=== PATIENT | male | born 1955 | race Hispanic/Latino ===

== ENCOUNTER 2018-02-04 01:05 | Emergency (ER) | payer MEDICAID ==
[2018-02-04] MEDS ORDERED: NACL 0.9% 1000 ML 1,000 ML IV ONE (01:38)
[2018-02-04] MEDS ORDERED: KEPPRA 1,000 MG/NS 0.75% 100ML 1,000 MG/100 ML BAG IV ONE (01:38)
[2018-02-04 02:07] LABS: Hematocrit 43.7 % (35.5-45.6); Hemoglobin 14.5 gm/dl (11.8-15.2); Mean Corpuscular HGB Conc 33 % (32-34); Mean Corpuscular Hemoglobin 31 pg (28-32); Mean Corpuscular Volume 93 fl (84-94); Platelet Count 130 K/mm3 (140-440); Red Cell Distribution Width 14.2 % (13.2-15.2)
--- NOTE | 2018-02-04 02:09 | Cat Scan Report ---
FINAL REPORT EXAM: CT HEAD/BRAIN WO CON HISTORY: seizure TECHNIQUE: Routine axial imaging was obtained of the brain without IV contrast. FINDINGS: There is mild generalized atrophy. There is no evidence of acute stroke or hemorrhage. The ventricular system is appropriate in size and is symmetric. The basal cisterns appear normal. The visualized sinuses are clear. The mastoid air cells are well pneumatized. The orbital structures reveal nonspecific calcifications in both globes. Calvarium appears intact IMPRESSION: Mild generalized atrophy. No acute intracranial process.
[2018-02-04 02:24] LABS: BUN/Creatinine Ratio 11; Blood Urea Nitrogen 11 mg/dL (9-20); Hemolysis Index 1
[2018-02-04 02:29] LABS: Calcium > 13.0 mg/dL (8.4-10.2)
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
[2018-02-04 05:06] VITALS: BP 141/98
== END 2018-02-04 04:10 | disposition home or self-care (01) ==
LOC: ED 01:05
DX: G40.909 Epilepsy, unspecified, not intractable, without status epilepticus (principal); E86.0 Dehydration; F17.200 Nicotine dependence, unspecified, uncomplicated; E87.5 Hyperkalemia
CPT/HCPCS: 36415; 70450; 80048; 82550; 85027; 96365; 99284; J1953; J7030

== ENCOUNTER 2019-01-31 11:03 | Inpatient (IN) | payer MEDICARE, MEDICAID ==
[2019-01-31] MEDS ORDERED: NACL 0.9% 500 ML 500 ML IV ONE (12:22)
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
[2019-01-31 13:17] LABS: Basophils # (Auto) 0.1 K/mm3 (0.0-0.1); Basophils % (Auto) 0.7 % (0.0-1.8); Eosinophils # (Auto) 0.1 K/mm3 (0.0-0.4); Eosinophils % (Auto) 0.4 % (0.0-4.3); Hematocrit 41.1 % (35.5-45.6); Lymphocytes # (Auto) 2.2 K/mm3 (1.2-5.4); Lymphocytes % (Auto) 11.5 % (13.4-35.0); Mean Corpuscular HGB Conc 34 % (32-34); Mean Corpuscular Volume 95 fl (84-94); Monocytes # (Auto) 1.3 K/mm3 (0.0-0.8); Monocytes % (Auto) 6.9 % (0.0-7.3); Platelet Count 211 K/mm3 (140-440); Red Blood Count 4.33 M/mm3 (3.65-5.03); Red Cell Distribution Width 13.7 % (13.2-15.2)
--- NOTE | 2019-01-31 13:29 | XRay Report ---
CHEST 1 VIEW 1259 INDICATION / CLINICAL INFORMATION: Altered Mental Status. COMPARISON: None available. FINDINGS: SUPPORT DEVICES: None HEART / MEDIASTINUM: No significant abnormality. LUNGS / PLEURA: Areas of linear atelectasis and/or scarring are seen in the left mid to lower lung fi eld and minimally in the right base. Though no definite areas of consolidation are seen it would be d ifficult to exclude developing pneumonitis in the left base particularly. No obvious pleural effusion is seen. No pneumothorax. ADDITIONAL FINDINGS: No significant additional findings. IMPRESSION: Asymmetric density in the left base as discussed above. Clinical correlation and follow-u p are suggested. Signer Name: Uriel Carpenter MD Signed: 01/31/2019 1:24 PM Workstation Name: [id number]
[2019-01-31 13:34] LABS: INR 1.01 (0.87-1.13)
[2019-01-31 13:39] LABS: BUN/Creatinine Ratio 17; Blood Urea Nitrogen 24 mg/dL (9-20); Hemolysis Index 42
[2019-01-31 13:41] LABS: Calcium > 13.0 mg/dL (8.4-10.2)
[2019-01-31] MEDS ORDERED: NACL 0.9% 1000 ML 1,000 ML IV ONE ×2 (13:57→14:29)
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
[2019-01-31 14:07] LABS: Chol/HDL Ratio 3.79 %; HDL Cholesterol 29 mg/dL (40-59); LDL Cholesterol,Direct 69 mg/dL (50-130)
[2019-01-31] MEDS: ROCEPHIN/NS 2 GM/100 ML 2 GM/100 ML BAG IV SCH (14:37)
[2019-01-31 14:40] LABS: Bacteria,Urine 2+ /HPF (Negative); Bilirubin,Urine NEG (Negative); Blood,Urine NEG (Negative); Color,Urine Amber (Yellow); Mucus,Urine 2+ /HPF; Protein,Urine <15 mg/dL mg/dL (Negative)
[2019-01-31 14:42] LABS: Amphetamine Screen,Urine PRESUMPTIVE NEGATIVE; Benzodiazepines Screen,Urine PRESUMPTIVE NEGATIVE; Cannabinoid Screen,Urine PRESUMPTIVE NEGATIVE; Cocaine Screen,Urine PRESUMPTIVE NEGATIVE; Opiate Screen,Urine PRESUMPTIVE NEGATIVE
[2019-01-31 14:54] LABS: Methadone Screen,Urine PRESUMPTIVE POSITIVE
[2019-01-31] MEDS: ZITHROMAX 500 MG in NACL 0.9% 250ML 250 ML IV SCH (15:07)
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
--- NOTE | 2019-01-31 16:21 | History and Physical Report ---
History of Present Illness Chief complaint: He is confused and just acting sick all the time. History of present illness: 63 YO Male with Obesity, Nicotine Dependence, Opioid Addiction on Methadone Maintenance Program presents to ED for evaluation. Pt is lethargic and unable to provide detailed history but is able to provide limited history. Pt is at bedside and provided history. As per , the patient has experienced progressive generalized weakness. Pt is confused at times. reports decreased ambulation due to gait instability and inability to independently conduct activities of daily living, decreased appetite, decreased oral intake, loss of bowel and bladder continence. EMS notified and upon arrival the patient was found to be in distress and transported to [facility]. Pt seen and evaluated in ED and found to have NSTEMI, SIRS, LLL Pneumonia, as well as Bilateral Pulmonary Emboli. Pt is confused, and exhibits tangential thinking, but has a positive gag reflex, and is able to phonate and protect his airway without difficulty. Pt denies IV drug use. Both and interviewed, and no reports of fever, chills, CP, Palpitations, NVD, Trauma, Productive cough, hemoptysis, BRBPR, skin rash, unilateral leg swelling, calf pain, prolonged travel/immobility, individual/family history of DVT/PE/Bleeding/Blood Clotting Disorder. Pt admitted to telemetry and initiated on therapeutic anticoagulation, and well as Pneumonia protocol. Cardiology consulted in ED. No prior admission for review. No medication listed at time of admission for reconciliation. Past History Past Medical History: other (Nicotine Dependence, Opioid Addiction, ) Past Surgical History: bowel surgery Social history: , lives with family, smoking, other (Opioid Dependence) Family history: hypertension Medications and Allergies Allergies Allergy/AdvReac Type Severity Reaction Status Date / Time codeine Allergy Unknown Verified 07/18/14 21:55 Home Medications Medication Instructions Recorded Confirmed Last Taken Type Methadone 80 mg PO DAILY 01/31/19 01/31/19 Unknown History Active Meds: Active Medications Ceftriaxone Sodium (Rocephin/Ns 2 Gm/100 Ml) 2 gm in 100 mls @ 200 mls/hr IV Q24HR GULSHAN; Protocol Last Admin: 01/31/19 14:37 Dose: 200 mls/hr Documented by: Azithromycin 500 mg/ Sodium (Chloride) 250 mls @ 250 mls/hr IV Q24HR GULSHAN; Protocol Last Admin: 01/31/19 15:07 Dose: 250 mls/hr Documented by: Review of Systems ROS unobtainable: due to mental status Exam - Constitutional Vitals: Temp Pulse Resp BP Pulse Ox 98.3 F 59 L 16 123/76 97 01/31/19 11:20 01/31/19 14:20 01/31/19 14:20 01/31/19 14:20 01/31/19 14:20 General appearance: Present: mild distress, obese - EENT Eyes: Present: miosis ENT: hearing intact, clear oral mucosa - Neck Neck: Present: supple, normal ROM - Respiratory Respiratory: bilateral: diminished - Cardiovascular Heart Sounds: Present: S1 & S2. Absent: rub, click - Extremities Extremities: pulses symmetrical, No edema Peripheral Pulses: within normal limits - Abdominal General gastrointestinal: Present: soft, non-tender, non-distended, normal bowel sounds Male genitourinary: Present: normal - Integumentary Integumentary: Present: clear, dry, clammy, decreased turgor - Musculoskeletal Musculoskeletal: generalized weakness - Psychiatric Psychiatric: no appropriate mood/affect, no intact judgment & insight, no memory intact - Neurologic Neurologic: CNII-XII intact, moves all extremities, no gait normal Results - Labs CBC & Chem 7: 01/31/19 12:23 01/31/19 12:23 Labs: Abnormal lab results 01/31/19 01/31/19 01/31/19 Range/Units 12:23 12:23 13:00 WBC 18.7 H (4.5-11.0) K/mm3 MCV 95 H (84-94) fl Lymph % (Auto) 11.5 L (13.4-35.0) % [place] # 1.3 H (0.0-0.8) K/mm3 Seg Neutrophils % 80.5 H (40.0-70.0) % Seg Neutrophils # 15.1 H (1.8-7.7) K/mm3 BUN 24 H (9-20) mg/dL Calcium > 13.0 H* (8.4-10.2) mg/dL Total Creatine Kinase 51 L (55-170) units/L Troponin T 0.045 H (0.00-0.029) ng/mL HDL Cholesterol 29 L (40-59) mg/dL TSH (0.270-4.200) mlU/mL Salicylates (2.8-20.0) mg/dL Acetaminophen (10.0-30.0) ug/mL 01/31/19 01/31/19 01/31/19 Range/Units 13:00 13:00 13:00 WBC (4.5-11.0) K/mm3 MCV (84-94) fl Lymph % (Auto) (13.4-35.0) % [place] # (0.0-0.8) K/mm3 Seg Neutrophils % (40.0-70.0) % Seg Neutrophils # (1.8-7.7) K/mm3 BUN (9-20) mg/dL Calcium (8.4-10.2) mg/dL Total Creatine Kinase (55-170) units/L Troponin T (0.00-0.029) ng/mL HDL Cholesterol (40-59) mg/dL TSH 4.420 H (0.270-4.200) mlU/mL Salicylates < 0.3 L (2.8-20.0) mg/dL Acetaminophen < 5.0 L (10.0-30.0) ug/mL Assessment and Plan - Patient Problems (1) NSTEMI (non-ST elevated myocardial infarction) Current Visit: Yes Status: Acute Plan to address problem: Admit to telemetry, cardiology consulted in ED, Echo, therapeutic anticoagulation, bnp, chest x ray, supplemental oxygen, (2) SIRS (systemic inflammatory response syndrome) Current Visit: Yes Status: Acute Plan to address problem: IV antibiotic therapy, chest x ray, urinalysis, CBC, CMP, (3) Opioid dependence Current Visit: Yes Status: Acute Qualifiers: Complication of substance-induced condition: uncomplicated Plan to address problem: supportive care, pending methadone dose verification, Pt lethargic at time of exam and interview. (4) Bilateral pulmonary embolism Current Visit: Yes Status: Acute Plan to address problem: therapeutic anticoagulation, supportive care. CT [place] chest, chest x ray. (5) Hypercalcemia Current Visit: Yes Status: Acute Plan to address problem: Ionized calcium level, IVF resuscitation therapy, repeat bmp (6) Pneumonia Current Visit: Yes Status: Acute Qualifiers: Laterality: left Lung location: lower lobe of lung Plan to address problem: Pneumonia protocol: IV antibiotic therapy, chest x ray, CTA chest, supplemental oxygen, nebulizer,blood cultures, cbc, cmp. (7) Nicotine dependence Current Visit: Yes Status: Acute Qualifiers: Nicotine product type: cigarettes Substance use status: in withdrawal Qualified Code(s): F17.213 - Nicotine dependence, cigarettes, with withdrawal Plan to address problem: Smoking cessation counseling, +15min, supportive care, (8) DVT prophylaxis Current Visit: Yes Status: Acute Plan to address problem: SCD to BLE while in bed, continue therapeutic anticoagulation.
[2019-01-31] MEDS ORDERED: ZOFRAN IV PRN (16:40)
[2019-01-31] MEDS ORDERED: PROVENTIL IH PRN (16:40)
[2019-01-31] MEDS ORDERED: SODIUM CHLORIDE FLUSH SYRINGE 10 ML IV PRN ×2 (16:40→16:44)
[2019-01-31] MEDS ORDERED: TYLENOL PO PRN (16:40)
[2019-01-31] MEDS ORDERED: BABY ASPIRIN PO STA (16:44)
[2019-01-31 17:32] LABS: Free T4 (Free Thyroxine) 1.23 ng/dL (0.76-1.46)
[2019-01-31] MEDS ORDERED: ASPIRIN ONE (17:44)
[2019-01-31] MEDS: LOVENOX SUB-Q SCH (21:47)
[2019-01-31] MEDS: SODIUM CHLORIDE FLUSH SYRINGE 10 ML IV SCH (21:48)
[2019-02-01 06:13] LABS: Basophils % (Auto) 0.2 % (0.0-1.8); Eosinophils % (Auto) 0.2 % (0.0-4.3); Hematocrit 37.3 % (35.5-45.6); Hemoglobin 12.4 gm/dl (11.8-15.2); Lymphocytes # (Auto) 1.9 K/mm3 (1.2-5.4); Lymphocytes % (Auto) 13.5 % (13.4-35.0); Mean Corpuscular HGB Conc 33 % (32-34); Mean Corpuscular Volume 96 fl (84-94); Monocytes # (Auto) 0.9 K/mm3 (0.0-0.8); Monocytes % (Auto) 6.7 % (0.0-7.3); Platelet Count 178 K/mm3 (140-440); Red Blood Count 3.88 M/mm3 (3.65-5.03); Red Cell Distribution Width 13.5 % (13.2-15.2)
[2019-02-01 06:36] LABS: Alanine Aminotransferase 14 units/L (7-56); Albumin 2.4 g/dL (3.9-5); BUN/Creatinine Ratio 16; Blood Urea Nitrogen 18 mg/dL (9-20); Hemolysis Index 55
[2019-02-01 07:06] LABS: Calcium > 13.0 mg/dL (8.4-10.2)
[2019-02-01] MEDS: NACL 0.9% 1000 ML 1,000 ML IV SCH ×2 (11:14→16:09)
--- NOTE | 2019-02-01 11:36 | Consultation ---
History of Present Illness Consult date: 02/01/19 Consult reason: elevated troponin History of present illness: 63 YO man with h/o Obesity, Nicotine Dependence, Opioid Addiction on Methadone Maintenance Program presented with worsening and profound generalized weakness. He was found to have bilateral pulmonary emboli and minimally elevated troponin levels. He was also noted to have hypercalcemia and sclerotic bony lesions on chest/abdomen CT scan. He has no prior cardiac history and has not experienced any significant chest pain. ECG reveals sinus rhythm with PVCs, nonspecific T wave abnormality Past History Past Medical History: other (Nicotine Dependence, Opioid Addiction, ) Past Surgical History: bowel surgery Social history: , lives with family, smoking, other (Opioid Dependence) Family history: hypertension Medications and Allergies Allergies Allergy/AdvReac Type Severity Reaction Status Date / Time codeine Allergy Unknown Verified 07/18/14 21:55 Home Medications Medication Instructions Recorded Confirmed Last Taken Type Methadone 80 mg PO DAILY 01/31/19 01/31/19 Unknown History Active Meds: Active Medications Acetaminophen (Tylenol) 650 mg PO Q4H PRN PRN Reason: Pain MILD(1-3)/Fever >100.5/MORGAN Albuterol (Proventil) 2.5 mg IH Q4HRT PRN PRN Reason: Shortness Of Breath Enoxaparin Sodium (Lovenox) 90 mg 1 mg/kg (90 mg) SUB-Q Q12HR GULSHAN Last Admin: 01/31/19 21:47 Dose: 90 mg Documented by: Furosemide (Lasix) 40 mg IV 0600,1800 GULSHAN Ceftriaxone Sodium (Rocephin/Ns 2 Gm/100 Ml) 2 gm in 100 mls @ 200 mls/hr IV Q24HR GULSHAN; Protocol Last Admin: 01/31/19 14:37 Dose: 200 mls/hr Documented by: Azithromycin 500 mg/ Sodium (Chloride) 250 mls @ 250 mls/hr IV Q24HR GULSHAN; Protocol Last Admin: 01/31/19 15:07 Dose: 250 mls/hr Documented by: Sodium Chloride (Nacl 0.9% 1000 Ml) 1,000 mls @ 100 mls/hr IV DIRECT GULSHAN Last Admin: 02/01/19 11:14 Dose: 100 mls/hr Documented by: Sodium Chloride (Nacl 0.9% 500 Ml) 500 mls @ 999 mls/hr IV ONCE ONE Stop: 02/01/19 12:30 Pamidronate Disodium 90 mg/ (Sodium Chloride) 1,010 mls @ 100 mls/hr IV ONCE ONE Stop: 02/01/19 21:35 Ondansetron HCl (Zofran) 4 mg IV Q8H PRN PRN Reason: Nausea And Vomiting Pneumococcal Polyvalent Vaccine (Pneumovax 23) 0.5 ml IM .ONCE ONE Stop: 02/01/19 12:01 Sodium Chloride (Sodium Chloride Flush Syringe 10 Ml) 10 ml IV BID GULSHAN Last Admin: 01/31/19 21:48 Dose: 10 ml Documented by: Sodium Chloride (Sodium Chloride Flush Syringe 10 Ml) 10 ml IV PRN PRN PRN Reason: LINE FLUSH Sodium Chloride (Sodium Chloride Flush Syringe 10 Ml) 10 ml IV PRN PRN PRN Reason: LINE FLUSH Review of Systems All systems: negative (per hpi) Physical Examination Vital Signs Temp Pulse Resp BP Pulse Ox 98.3 F 67 18 119/75 90 01/31/19 11:12 01/31/19 11:12 01/31/19 11:12 01/31/19 11:12 01/31/19 11:12 HEENT: Positive: PERRL Neck: Positive: neck supple Cardiac: Positive: Reg Rate and Rhythm. Negative: Audible Murmur Lungs: Positive: clear to auscultation, Decreased Breath Sounds Abdomen: Positive: Soft, Active Bowel Sounds Extremities: Absent: edema Results 02/01/19 05:03 02/01/19 05:03 Cardiac Enzymes 02/01/19 Range/Units 05:03 AST 20 (5-40) units/L Coagulation 01/31/19 Range/Units 13:00 PT 13.0 (12.2-14.9) Sec. INR 1.01 (0.87-1.13) Lipids 01/31/19 Range/Units 12:23 Triglycerides 112 (2-149) mg/dL Cholesterol 110 (50-199) mg/dL HDL Cholesterol 29 L (40-59) mg/dL Cholesterol/HDL Ratio 3.79 % CBC 01/31/19 02/01/19 Range/Units 12:23 05:03 WBC 18.7 H 14.0 H (4.5-11.0) K/mm3 RBC 4.33 3.88 (3.65-5.03) M/mm3 Hgb 14.0 12.4 (11.8-15.2) gm/dl Hct 41.1 37.3 (35.5-45.6) % Plt Count 211 178 (140-440) K/mm3 Lymph # 2.2 1.9 (1.2-5.4) K/mm3 [place] # 1.3 H 0.9 H (0.0-0.8) K/mm3 Eos # 0.1 0.0 (0.0-0.4) K/mm3 Baso # 0.1 0.0 (0.0-0.1) K/mm3 Comprehensive Metabolic Panel 01/31/19 02/01/19 Range/Units 12:23 05:03 Sodium 138 139 (137-145) mmol/L Potassium 3.9 3.6 (3.6-5.0) mmol/L Chloride 99.4 104.5 (98-107) mmol/L Carbon Dioxide 30 28 (22-30) mmol/L BUN 24 H 18 (9-20) mg/dL Creatinine 1.4 1.1 (0.8-1.5) mg/dL Glucose 84 89 (75-100) mg/dL Calcium > 13.0 H* > 13.0 H* (8.4-10.2) mg/dL AST 20 (5-40) units/L ALT 14 (7-56) units/L Alkaline Phosphatase 70 (35-129) units/L Total Protein 6.6 (6.3-8.2) g/dL Albumin 2.4 L (3.9-5) g/dL Assessment and Plan Minimal troponin elevation related to pulmonary embolism Bilateral PEs Hypercalcemia Sclerotic bony lesions Recommend: Anticoagulation Check Echocardiogram Consider Oncology evaluation.
--- NOTE | 2019-02-01 11:44 | Consultation ---
History of Present Illness - Reason for Consult Consult date: 02/01/19 acute renal failure, other (hypercalcemia) - History of Present Illness The patient is a 63 YO male with history significant for Obesity, Nicotine Dependence, Opioid Addiction on Methadone Maintenance Program who [facility] for evaluation of lethargy, AMS and gait disturbances. Patient was unable to provide any history and the information was obtained from his at the bedside. The patient has progressive generalized weakness, difficulty in walking, unable to independently conduct ADLs, decreased appetite, poor PO intake and loss of bowel and bladder continence. Upon arrival to ED pt was treated for NSTEMI, SIRS, LLL Pneumonia and Bilateral Pulmonary Emboli. Per no h/o N, V, D, IV drug use, cp, sob, syncope, fever or rash. Calcium level is .13. Nephrology was consulted for further evaluation. Past History Past Medical History: other (Nicotine Dependence, Opioid Addiction, ) Past Surgical History: bowel surgery Social history: , lives with family, smoking, other (Opioid Dependence) Family history: hypertension Medications and Allergies Allergies Allergy/AdvReac Type Severity Reaction Status Date / Time codeine Allergy Unknown Verified 07/18/14 21:55 Home Medications Medication Instructions Recorded Confirmed Last Taken Type Methadone 80 mg PO DAILY 01/31/19 01/31/19 Unknown History Active Meds: Active Medications Acetaminophen (Tylenol) 650 mg PO Q4H PRN PRN Reason: Pain MILD(1-3)/Fever >100.5/MORGAN Albuterol (Proventil) 2.5 mg IH Q4HRT PRN PRN Reason: Shortness Of Breath Enoxaparin Sodium (Lovenox) 90 mg 1 mg/kg (90 mg) SUB-Q Q12HR GULSHAN Last Admin: 01/31/19 21:47 Dose: 90 mg Documented by: Furosemide (Lasix) 40 mg IV 0600,1800 GULSHAN Ceftriaxone Sodium (Rocephin/Ns 2 Gm/100 Ml) 2 gm in 100 mls @ 200 mls/hr IV Q24HR GULSHAN; Protocol Last Admin: 01/31/19 14:37 Dose: 200 mls/hr Documented by: Azithromycin 500 mg/ Sodium (Chloride) 250 mls @ 250 mls/hr IV Q24HR GULSHAN; Protocol Last Admin: 01/31/19 15:07 Dose: 250 mls/hr Documented by: Sodium Chloride (Nacl 0.9% 1000 Ml) 1,000 mls @ 100 mls/hr IV DIRECT [facility] Last Admin: 02/01/19 11:14 Dose: 100 mls/hr Documented by: Sodium Chloride (Nacl 0.9% 500 Ml) 500 mls @ 999 mls/hr IV ONCE ONE Stop: 02/01/19 12:30 Pamidronate Disodium 90 mg/ (Sodium Chloride) 1,010 mls @ 100 mls/hr IV ONCE ONE Stop: 02/01/19 21:35 Ondansetron HCl (Zofran) 4 mg IV Q8H PRN PRN Reason: Nausea And Vomiting Pneumococcal Polyvalent Vaccine (Pneumovax 23) 0.5 ml IM .ONCE ONE Stop: 02/01/19 12:01 Sodium Chloride (Sodium Chloride Flush Syringe 10 Ml) 10 ml IV BID [facility] Last Admin: 01/31/19 21:48 Dose: 10 ml Documented by: Sodium Chloride (Sodium Chloride Flush Syringe 10 Ml) 10 ml IV PRN PRN PRN Reason: LINE FLUSH Sodium Chloride (Sodium Chloride Flush Syringe 10 Ml) 10 ml IV PRN PRN PRN Reason: LINE FLUSH Review of Systems ROS unobtainable: due to mental status (patient is a very poor historian) Exam - Vital Signs Vital signs: Vital Signs Temp Pulse Resp BP Pulse Ox 98.3 F 67 18 119/75 90 01/31/19 11:12 01/31/19 11:12 01/31/19 11:12 01/31/19 11:12 01/31/19 11:12 - General Appearance General appearance: well-developed, well-nourished, appears stated age, other (no distress) EENT: ATNC, PERRL, mucous membranes dry, hearing intact, vision intact Neck: Present: neck supple, trachea midline Respiratory: Clear to Ascultation Heart: regular, S1S2, no murmurs Gastrointestinal: Present: normoactive bowel sounds, obese. Absent: tenderness, distended Integumentary: warm and dry, chronic venous stasis Neurologic: no focal deficit, no asterixis, alert and oriented x3 Musculoskeletal: Present: other (R LE edema) Psychiatric: cooperative Results - Lab Results 02/01/19 05:03 02/01/19 05:03 Most recent lab results Calcium > 13.0 mg/dL (8.4-10.2) H* 02/01/19 05:03 - Image Kidney/bladder ultrasound: other Assessment and Plan 1. Hypercalcemia: Suspected bony metastasis. Hypercalcemia likely malignancy related. IV pamidronate ordered. Continue IV fluids. PTH and Vit.D level ordered. Monitor Calcium level. 2. Acute kidney injury: Vasomotor / hemodynamic AJAY in the setting of volume depletion. CT abdomen was negative for hydro. Continue IV fluids. Monitor renal function. Renal function is better. Avoid nephrotoxic agents. 3. FEN: Monitor lytes. 4. PE: On Lovenox. 5. AMS. 6. Chronic pain syndrome with h/o opiod addiction: On Methadone. 7. Elevated Troponin. D/w his at the bedside and answered all questions.
[2019-02-01] MEDS: ROCEPHIN/NS 2 GM/100 ML 2 GM/100 ML BAG IV SCH (11:46)
[2019-02-01] MEDS: LOVENOX SUB-Q SCH ×2 (11:51→22:24)
[2019-02-01] MEDS ORDERED: PNEUMOVAX 23 IM ONE (12:00)
[2019-02-01] MEDS ORDERED: AREDIA 90 MG in NACL 0.9% 1000 ML 1,000 ML IV ONE (12:00)
[2019-02-01] MEDS ORDERED: NACL 0.9% 500 ML 500 ML IV ONE (12:00)
[2019-02-01] MEDS: ZITHROMAX 500 MG in NACL 0.9% 250ML 250 ML IV SCH (12:03)
[2019-02-01] MEDS: SODIUM CHLORIDE FLUSH SYRINGE 10 ML IV SCH ×2 (12:03→22:24)
--- NOTE | 2019-02-01 14:27 | Progress Note ---
Assessment and Plan /Hypercalcemia: likely malignancy related Presented with Suspected bony metastasis - possible source from prostate? IV pamidronate ordered, Continue IV fluids and Lasix twice a day. Check PSA, PTH and Vit.D . Monitor Calcium level, we'll consult oncology. /Acute kidney injury: likely Vasomotor / hemodynamic AJAY in the setting of volume depletion. CT abdomen was negative for hydro. Continue IV fluids, consult nephrology /Acute bilateral PE: On Therapeutic dose of Lovenox. Ordered right lower extremity venous Doppler /Acute metabolic encephalopathy, present on admission - Likely from hypercalcemia and acute bilateral PE - Continue IV fluid, anticoagulation, monitor electrolytes - Mental status currently at baseline / Chronic pain syndrome with h/o opiod addiction: On Methadone. / Elevated Troponin/N STEMI type II - Due to acute PE - Continue anti-cognition full dose, follow 2-D echo - Cardiology following Physical exam: GENERAL: well-developed and well-nourished white male lying on bed appeared to be in no discomfort. HEENT: Normocephalic. Atraumatic. No conjunctival congestion or icterus. Patient has moist mucous membranes. NECK: Supple. Trachea midline. CHEST/LUNGS: Clear to auscultated bilaterally, breathing nonlabored. No wheezes crackles or rhonchi. HEART/CARDIOVASCULAR: Regular in rate and rhythm. S1 and S2 positive. ABDOMEN: Abdomen is soft, nontender. Patient has normal bowel sounds. SKIN: There is no rash. Warm and dry. NEURO: No focal motor deficit. Follows command. MUSCULOSKELETAL: No joint effusion or tenderness. EXTRIMITY: no cyanosis or clubbing. right lower extremity swelling PSYCH: Cooperative. Subjective Date of service: 02/01/19 Interval history: Patient seen and examined. Medical records and medication list reviewed. No acute event overnight noted by the RN. Patient denies any chest pain or difficulty breathing. Patient is tolerating diet. Complaints of right lower extremity swelling and chronic pain Discussed plan of care at bedside with patient. Objective - Constitutional Vitals: Vital Signs - 12hr 02/01/19 02/01/19 02/01/19 04:32 08:26 12:13 Temperature 98.3 F 98.6 F 97.5 F L Pulse Rate 60 67 51 L Pulse Rate [ Radial] Respiratory 18 20 18 Rate Blood Pressure 115/57 124/74 105/60 O2 Sat by Pulse 91 92 94 Oximetry 02/01/19 14:13 Temperature Pulse Rate Pulse Rate [ 56 L Radial] Respiratory 20 Rate Blood Pressure O2 Sat by Pulse Oximetry - Labs CBC & Chem 7: 02/01/19 05:03 02/01/19 05:03 Labs: Abnormal lab results 01/31/19 02/01/19 02/01/19 Range/Units 19:14 05:03 05:03 WBC 14.0 H (4.5-11.0) K/mm3 MCV 96 H (84-94) fl [place] # 0.9 H (0.0-0.8) K/mm3 Seg Neutrophils % 79.4 H (40.0-70.0) % Seg Neutrophils # 11.2 H (1.8-7.7) K/mm3 Calcium > 13.0 H* (8.4-10.2) mg/dL Troponin T 0.034 H D (0.00-0.029) ng/mL Albumin 2.4 L (3.9-5) g/dL
--- NOTE | 2019-02-01 16:46 | Vascular Lab Report ---
DUPLEX DOPPLER LOWER EXTREMITY VEINS, RIGHT INDICATION: right lower extremity swelling. TECHNIQUE: Duplex doppler imaging was performed through the veins of the right lower extremity using venous comp ression and other maneuvers. COMPARISON: None available. FINDINGS: Common Femoral vein: Negative. Superficial Femoral vein: Positive. Popliteal vein: Positive. Calf veins: Positive. Additional findings: None. IMPRESSION: Acute deep vein thrombosis within the right lower extremity. Signer Name: Marc Gilliland MD Signed: 02/01/2019 4:42 PM Workstation Name: [id number]
[2019-02-01] MEDS ORDERED: LASIX IV SCH (18:00)
[2019-02-01 19:22] LABS: Creatinine,Urine 37.1 mg/dL (0.1-20.0)
[2019-02-02] MEDS: NACL 0.9% 1000 ML 1,000 ML IV SCH (02:37)
[2019-02-02 06:41] LABS: BUN/Creatinine Ratio 11; Blood Urea Nitrogen 11 mg/dL (9-20); Hemolysis Index 5
[2019-02-02 06:44] LABS: Calcium 12.4 mg/dL (8.4-10.2)
[2019-02-02] MEDS ORDERED: AREDIA 90 MG in NACL 0.9% 1000 ML 1,000 ML IV ONE (07:15)
--- NOTE | 2019-02-02 09:04 | Progress Note ---
Assessment and Plan 1. Hypercalcemia: Hypercalcemia associated with hyperparathyroidism. Parathyroid scan showed left inferior adenoma. S/p IV pamidronate. Continue IV fluids. Vit.D level pending. Calcium level is improving. 2. Acute kidney injury: Vasomotor / hemodynamic AJAY in the setting of volume depletion. CT abdomen was negative for hydro. Continue IV fluids. Monitor renal function. Renal function is better. Avoid nephrotoxic agents. 3. FEN: Replete K, Mg and Phos. Monitor lytes. 4. PE: On Lovenox. 5. AMS. 6. Chronic pain syndrome with h/o opiod addiction: On Methadone. 7. Elevated Troponin. D/w his at the bedside and answered all questions. Subjective Date of service: 02/02/19 Interval history: Patient was seen and examined at the bedside. Objective - Vital Signs Vital signs: Vital Signs - 12hr 02/01/19 02/02/19 02/02/19 23:53 05:13 08:32 Temperature 97.9 F 98.3 F 97.5 F L Pulse Rate 59 L 57 L Respiratory 20 20 18 Rate Blood Pressure 133/74 Blood Pressure 117/60 144/84 [Right] O2 Sat by Pulse 94 92 Oximetry - General Appearance General appearance: well-developed, well-nourished, appears stated age, other (no distress) EENT: ATNC, PERRL, hearing intact, vision intact Neck: supple Respiratory: Present: Clear to Ascultation Cardiology: regular, S1S2, no murmurs Gastrointestinal: normoactive bowel sounds Integumentary: no rash, warm and dry Neurologic: no focal deficit, no asterixis, alert and oriented x3 Musculoskeletal: other (LE edema noted) Psychiatric: cooperative - Lab 02/01/19 05:03 02/02/19 05:49 Most recent lab results Calcium 12.4 mg/dL (8.4-10.2) H* 02/02/19 05:49 Phosphorus 1.40 mg/dL (2.5-4.5) L 02/02/19 05:49 Magnesium 1.20 mg/dL (1.7-2.3) L 02/02/19 05:49 37.1 mg/dL (0.1-20.0) H 02/01/19 18:42 67 mmol/L 02/01/19 18:42 Medications & Allergies - Medications Allergies/Adverse Reactions: Allergies codeine Allergy (Verified 07/18/14 21:55) Unknown Home Medications: Home Medications Medication Instructions Recorded Confirmed Last Taken Type Methadone 80 mg PO DAILY 01/31/19 01/31/19 Unknown History Active Medications: Generic Name Dose Route Start Last Admin Trade Name Freq PRN Reason Stop Dose Admin Acetaminophen 650 mg 01/31/19 16:40 Tylenol PO Q4H PRN Pain MILD(1-3)/Fever >100.5/MORGAN Albuterol 2.5 mg 01/31/19 16:40 Proventil IH Q4HRT PRN Shortness Of Breath Enoxaparin Sodium 90 mg 01/31/19 22:00 02/01/19 22:24 Lovenox 1 mg/kg (90 mg) 90 mg SUB-Q Administration Q12HR GULSHAN Ceftriaxone Sodium 2 gm in 100 mls @ 200 mls/hr 01/31/19 14:00 02/01/19 11:46 Rocephin/Ns 2 Gm/100 Ml IV 200 mls/hr Q24HR GULSHAN Administration Protocol Azithromycin 500 mg/ Sodium 250 mls @ 250 mls/hr 01/31/19 14:00 02/01/19 12:03 Chloride IV 250 mls/hr Q24HR GULSHAN Administration Protocol Sodium Chloride 1,000 mls @ 100 mls/hr 02/01/19 09:00 02/02/19 02:37 Nacl 0.9% 1000 Ml IV 100 mls/hr DIRECT GULSHAN Administration Methadone HCl 80 mg 02/02/19 10:00 Dolophine PO QDAY GULSHAN Ondansetron HCl 4 mg 01/31/19 16:40 Zofran IV Q8H PRN Nausea And Vomiting Sodium Chloride 10 ml 01/31/19 22:00 02/01/19 22:24 Sodium Chloride Flush Syringe 10 Ml IV 10 ml BID GULSHAN Administration Sodium Chloride 10 ml 01/31/19 16:40 Sodium Chloride Flush Syringe 10 Ml IV PRN PRN LINE FLUSH Sodium Chloride 10 ml 01/31/19 16:44 Sodium Chloride Flush Syringe 10 Ml IV PRN PRN LINE FLUSH
[2019-02-02] MEDS: ROCEPHIN/NS 2 GM/100 ML 2 GM/100 ML BAG IV SCH (09:42)
[2019-02-02] MEDS: LOVENOX SUB-Q SCH ×2 (09:58→21:24)
[2019-02-02] MEDS ORDERED: KPHOS 45 MMOL in NACL 0.9% 500 ML 500 ML IV ONE (10:00)
[2019-02-02] MEDS ORDERED: METHADONE PO SCH (10:00)
[2019-02-02] MEDS ORDERED: MAGNESIUM SULFATE 3 GM in NACL 0.9% 100 ML IV ONE (10:00)
[2019-02-02] MEDS: SODIUM CHLORIDE FLUSH SYRINGE 10 ML IV SCH ×2 (10:04→23:17)
--- NOTE | 2019-02-02 11:43 | Progress Note ---
Assessment and Plan Acute Bilateral PE/DVT Minimal troponin elevation related to pulmonary embolism Hypercalcemia Sclerotic bony lesions seen on CT chest An echocardiogram shows a normal right heart chambers size and a normal left ventricular systolic function, EF 50-55%. Conservative cardiac management. We will follow intermittently. Subjective Date of service: 02/02/19 Interval history: No cardiac events. Objective Vital Signs Temp Pulse Pulse Resp BP BP Pulse Ox 02/02/19 08:32 97.5 F L 18 133/74 02/02/19 05:13 98.3 F 57 L 20 144/84 92 02/01/19 23:53 97.9 F 59 L 20 117/60 94 02/01/19 20:34 98.7 F 65 18 119/65 91 02/01/19 19:33 56 L 02/01/19 17:37 97.5 F L 63 16 130/68 88 02/01/19 17:00 56 L 02/01/19 14:13 56 L 20 02/01/19 12:13 97.5 F L 51 L 18 105/60 94 - Physical Examination General: No Apparent Distress HEENT: Positive: PERRL Neck: Positive: neck supple Cardiac: Positive: Reg Rate and Rhythm Neuro: Positive: Weakness Extremities: Absent: edema - Labs and Meds Comprehensive Metabolic Panel 02/02/19 Range/Units 05:49 Sodium 143 (137-145) mmol/L Potassium 3.1 L (3.6-5.0) mmol/L Chloride 107.2 H (98-107) mmol/L Carbon Dioxide 28 (22-30) mmol/L BUN 11 (9-20) mg/dL Creatinine 1.0 (0.8-1.5) mg/dL Glucose 81 (75-100) mg/dL Calcium 12.4 H* (8.4-10.2) mg/dL
[2019-02-02] MEDS: DOLOPHINE PO SCH (14:20)
--- NOTE | 2019-02-02 14:53 | Nuclear Medicine Report ---
NUCLEAR MEDICINE PARATHYROID SCAN HISTORY: Primary hyperparathyroidism, hypercalcemia. TECHNIQUE: 24.8 mCi of technetium 99m sestamibi was injected. Initial and 3 hour delayed images of th e neck and chest were obtained. FINDINGS: There is a focal area of increased activity on the initial images and persistent activity on the 3 ho ur images overlying the expected position of the left inferior parathyroid gland. No additional areas of abnormal activity are identified. IMPRESSION: Left inferior parathyroid adenoma. Signer Name: Ignacio Sosa Jr, MD Signed: 02/02/2019 2:49 PM Workstation Name: [id number]
--- NOTE | 2019-02-02 15:42 | Progress Note ---
Assessment and Plan /Hypercalcemia: likely malignancy related vs hyperparathyroidism Presented with Suspected bony metastasis/lesion - possible source from prostate? IV pamidronate ordered, Continue IV fluids and Lasix twice a day. Check PSA, and Vit.D, elevated PTH Monitor Calcium level, nephrology following /Acute kidney injury: likely Vasomotor / hemodynamic AJAY in the setting of volume depletion. CT abdomen was negative for hydro. Continue IV fluids, consulted nephrology /Acute bilateral PE and right LE DVT: On Therapeutic dose of Lovenox. /Acute metabolic encephalopathy, present on admission - Likely from hypercalcemia and acute bilateral PE - Continue IV fluid, anticoagulation, monitor electrolytes - Mental status currently at baseline / Chronic pain syndrome with h/o opiod addiction: On Methadone. / Elevated Troponin/N STEMI type II - Due to acute PE - Continue anti-coagulation full dose, 2-D echo showed preserved EF - Cardiology following brief history: 63 YO man with h/o Obesity, Nicotine Dependence, Opioid Addiction on Methadone Maintenance Program presented with worsening and profound generalized weakness. He was found to have bilateral pulmonary emboli and minimally elevated troponin levels. He was also noted to have hypercalcemia and sclerotic bony lesions on chest/abdomen CT scan. Radiological data: CTA chest LE venous doppler 2d echo CT abdomen/pelvis Physical exam: GENERAL: well-developed and well-nourished white male lying on bed appeared to be in no discomfort. HEENT: Normocephalic. Atraumatic. No conjunctival congestion or icterus. Patient has moist mucous membranes. NECK: Supple. Trachea midline. CHEST/LUNGS: Clear to auscultated bilaterally, breathing nonlabored. No wheezes crackles or rhonchi. HEART/CARDIOVASCULAR: Regular in rate and rhythm. S1 and S2 positive. ABDOMEN: Abdomen is soft, nontender. Patient has normal bowel sounds. SKIN: There is no rash. Warm and dry. NEURO: No focal motor deficit. Follows command. MUSCULOSKELETAL: No joint effusion or tenderness. EXTRIMITY: no cyanosis or clubbing. right lower extremity swelling PSYCH: Cooperative. Subjective Date of service: 02/02/19 Interval history: Patient seen and examined. Medical records and medication list reviewed. No acute event overnight noted by the RN. Patient denies any chest pain or difficulty breathing. Patient is tolerating diet. Discussed plan of care at bedside with patient. Objective - Constitutional Vitals: Vital Signs - 12hr 02/02/19 02/02/19 05:13 08:32 Temperature 98.3 F 97.5 F L Pulse Rate 57 L Respiratory 20 18 Rate Blood Pressure 133/74 Blood Pressure 144/84 [Right] O2 Sat by Pulse 92 Oximetry - Labs CBC & Chem 7: 02/01/19 05:03 02/02/19 05:49 Labs: Abnormal lab results 02/01/19 02/02/19 02/02/19 Range/Units 18:42 05:49 05:49 Potassium 3.1 L (3.6-5.0) mmol/L Chloride 107.2 H (98-107) mmol/L Calcium 12.4 H* (8.4-10.2) mg/dL Phosphorus 1.40 L (2.5-4.5) mg/dL Magnesium 1.20 L (1.7-2.3) mg/dL PTH Intact 593.2 H (15-65) pg/mL Urine Creatinine 37.1 H (0.1-20.0) mg/dL
[2019-02-02] MEDS: ZITHROMAX 500 MG in NACL 0.9% 250ML 250 ML IV SCH (19:38)
[2019-02-02] MEDS ORDERED: MIRALAX 3350 PO PRN (22:31)
[2019-02-02] MEDS: COLACE PO SCH (23:14)
[2019-02-03] MEDS: NACL 0.9% 1000 ML 1,000 ML IV SCH (06:30)
[2019-02-03 08:08] LABS: BUN/Creatinine Ratio 8; Blood Urea Nitrogen 8 mg/dL (9-20); Calcium 10.7 mg/dL (8.4-10.2); Hemolysis Index 2
[2019-02-03] MEDS: COLACE PO SCH ×2 (10:12→21:44)
[2019-02-03] MEDS: DOLOPHINE PO SCH (10:12)
[2019-02-03] MEDS: LOVENOX SUB-Q SCH ×2 (10:13→21:44)
--- NOTE | 2019-02-03 10:13 | Progress Note ---
Assessment and Plan 1. Hypercalcemia: Hypercalcemia associated with hyperparathyroidism adenoma. Parathyroid scan showed left inferior adenoma. Continue IV fluids. Vit.D level pending. Calcium level is improving. 2. Acute kidney injury: Vasomotor / hemodynamic AJAY in the setting of volume depletion. CT abdomen was negative for hydro. Continue IV fluids. Monitor renal function. Renal function is better. Avoid nephrotoxic agents. 3. FEN: Replete K, Mg and Phos. Monitor lytes. 4. PE: On Lovenox. 5. AMS. 6. Chronic pain syndrome with h/o opiod addiction: On Methadone. 7. Elevated Troponin. D/w his at the bedside and answered all questions. Subjective Date of service: 02/03/19 Interval history: Patient was seen and examined at the bedside. No new complaint. Objective - Vital Signs Vital signs: Vital Signs - 12hr 02/02/19 02/03/19 02/03/19 23:50 01:00 05:09 Temperature 98.6 F 98.6 F Pulse Rate 65 58 L 57 L Respiratory 20 22 Rate Blood Pressure 130/64 129/68 O2 Sat by Pulse 91 95 Oximetry 02/03/19 02/03/19 07:27 10:05 Temperature 98.7 F Pulse Rate Respiratory 18 Rate Blood Pressure 126/72 O2 Sat by Pulse 95 Oximetry - General Appearance General appearance: well-developed, well-nourished, appears stated age, other (no distress) EENT: ATNC, PERRL, mucous membranes moist, hearing intact, vision intact Respiratory: Present: Clear to Ascultation Cardiology: regular, S1S2, no murmurs Gastrointestinal: normoactive bowel sounds, no tenderness, no distended, obese Integumentary: chronic venous stasis Neurologic: no focal deficit, no asterixis, alert and oriented x3 Musculoskeletal: other (R LE edema noted) Psychiatric: cooperative - Lab 02/01/19 05:03 02/03/19 07:33 Most recent lab results Calcium 10.7 mg/dL (8.4-10.2) H 02/03/19 07:33 Phosphorus 1.60 mg/dL (2.5-4.5) L 02/03/19 07:33 Magnesium 1.50 mg/dL (1.7-2.3) L 02/03/19 07:33 37.1 mg/dL (0.1-20.0) H 02/01/19 18:42 67 mmol/L 02/01/19 18:42 Medications & Allergies - Medications Allergies/Adverse Reactions: Allergies codeine Allergy (Verified 07/18/14 21:55) Unknown Home Medications: Home Medications Medication Instructions Recorded Confirmed Last Taken Type Methadone 80 mg PO DAILY 01/31/19 01/31/19 Unknown History Active Medications: Generic Name Dose Route Start Last Admin Trade Name Freq PRN Reason Stop Dose Admin Acetaminophen 650 mg 01/31/19 16:40 Tylenol PO Q4H PRN Pain MILD(1-3)/Fever >100.5/MORGAN Albuterol 2.5 mg 01/31/19 16:40 Proventil IH Q4HRT PRN Shortness Of Breath Docusate Sodium 100 mg 02/02/19 23:00 02/02/19 23:14 Colace PO 100 mg BID GULSHAN Administration Enoxaparin Sodium 90 mg 01/31/19 22:00 02/02/19 21:24 Lovenox 1 mg/kg (90 mg) 90 mg SUB-Q Administration Q12HR GULSHAN Ceftriaxone Sodium 2 gm in 100 mls @ 200 mls/hr 01/31/19 14:00 02/02/19 09:42 Rocephin/Ns 2 Gm/100 Ml IV 200 mls/hr Q24HR GULSHAN Administration Protocol Azithromycin 500 mg/ Sodium 250 mls @ 250 mls/hr 01/31/19 14:00 02/02/19 19:38 Chloride IV 250 mls/hr Q24HR GULSHAN Administration Protocol Sodium Chloride 1,000 mls @ 100 mls/hr 02/01/19 09:00 02/03/19 06:30 Nacl 0.9% 1000 Ml IV 100 mls/hr DIRECT GULSHAN Administration Methadone HCl 80 mg 02/02/19 10:00 02/02/19 14:20 Dolophine PO 80 mg QDAY GULSHAN Administration Ondansetron HCl 4 mg 01/31/19 16:40 Zofran IV Q8H PRN Nausea And Vomiting Polyethylene Glycol 17 gm 02/02/19 22:31 Miralax 3350 PO QDAY PRN Constipation Sodium Chloride 10 ml 01/31/19 22:00 02/02/19 23:17 Sodium Chloride Flush Syringe 10 Ml IV 10 ml BID GULSHAN Administration Sodium Chloride 10 ml 01/31/19 16:40 Sodium Chloride Flush Syringe 10 Ml IV PRN PRN LINE FLUSH
[2019-02-03] MEDS: ROCEPHIN/NS 2 GM/100 ML 2 GM/100 ML BAG IV SCH (10:14)
[2019-02-03] MEDS: SODIUM CHLORIDE FLUSH SYRINGE 10 ML IV SCH ×2 (10:14→21:45)
[2019-02-03] MEDS ORDERED: MAGNESIUM SULFATE 4GM/100ML 4 GM/100 ML BAG IV ONE (11:00)
[2019-02-03] MEDS ORDERED: KPHOS 45 MMOL in NACL 0.9% 500 ML 500 ML IV ONE (11:00)
--- NOTE | 2019-02-03 11:35 | Progress Note ---
Assessment and Plan Assessment and plan: /Hypercalcemia: likely malignancy related vs hyperparathyroidism Presented with Suspected bony metastasis/lesion - possible source from prostate? IV pamidronate ordered, Continue IV fluids and Lasix twice a day. Check PSA, and Vit.D, elevated PTH Monitor Calcium level, nephrology following /Acute kidney injury: likely Vasomotor / hemodynamic AJAY in the setting of volume depletion. CT abdomen was negative for hydro. Continue IV fluids, consulted nephrology /Acute bilateral PE and right LE DVT: On Therapeutic dose of Lovenox. --Sepsis secondary to pneumonia; Criteria. Patient has leukocytosis /Acute metabolic encephalopathy, present on admission - Likely from hypercalcemia and acute bilateral PE - Continue IV fluid, anticoagulation, monitor electrolytes - Mental status currently at baseline / Chronic pain syndrome with h/o opiod addiction: On Methadone. / Elevated Troponin/N STEMI type II - Due to acute PE - Continue anti-coagulation full dose, 2-D echo showed preserved EF - Cardiology following History Interval history: Patient seen and examined medical records reviewed Patient feels slightly better, complaints of generalized weakness Vital signs reviewed Hospitalist Physical - Constitutional Vitals: Temp Pulse Resp BP Pulse Ox 98.7 F 54 L 18 126/72 95 02/03/19 07:27 02/03/19 09:00 02/03/19 07:27 02/03/19 07:27 02/03/19 10:05 General appearance: Present: mild distress, obese - EENT Eyes: Present: PERRL, EOM intact - Neck Neck: Present: supple, normal ROM - Respiratory Respiratory effort: normal Respiratory: bilateral: diminished, negative: rales, rhonchi, wheezing - Cardiovascular Rhythm: regular Heart Sounds: Present: S1 & S2 - Extremities Extremities: no ischemia, No edema - Abdominal General gastrointestinal: soft, non-tender, non-distended, normal bowel sounds - Integumentary Integumentary: Present: clear, warm - Psychiatric Psychiatric: appropriate mood/affect, cooperative - Neurologic Neurologic: moves all extremities Results - Labs CBC & Chem 7: 02/01/19 05:03 02/05/19 05:51 Labs: Laboratory Last Values WBC 14.0 K/mm3 (4.5-11.0) H 02/01/19 05:03 RBC 3.88 M/mm3 (3.65-5.03) 02/01/19 05:03 Hgb 12.4 gm/dl (11.8-15.2) 02/01/19 05:03 Hct 37.3 % (35.5-45.6) 02/01/19 05:03 MCV 96 fl (84-94) H 02/01/19 05:03 MCH 32 pg (28-32) 02/01/19 05:03 MCHC 33 % (32-34) 02/01/19 05:03 RDW 13.5 % (13.2-15.2) 02/01/19 05:03 Plt Count 178 K/mm3 (140-440) 02/01/19 05:03 Lymph % (Auto) 13.5 % (13.4-35.0) 02/01/19 05:03 [place] % (Auto) 6.7 % (0.0-7.3) 02/01/19 05:03 Eos % (Auto) 0.2 % (0.0-4.3) 02/01/19 05:03 Baso % (Auto) 0.2 % (0.0-1.8) 02/01/19 05:03 Lymph # 1.9 K/mm3 (1.2-5.4) 02/01/19 05:03 [place] # 0.9 K/mm3 (0.0-0.8) H 02/01/19 05:03 Eos # 0.0 K/mm3 (0.0-0.4) 02/01/19 05:03 Baso # 0.0 K/mm3 (0.0-0.1) 02/01/19 05:03 Seg Neutrophils % 79.4 % (40.0-70.0) H 02/01/19 05:03 Seg Neutrophils # 11.2 K/mm3 (1.8-7.7) H 02/01/19 05:03 PT 13.0 Sec. (12.2-14.9) 01/31/19 13:00 INR 1.01 (0.87-1.13) 01/31/19 13:00 Sodium 142 mmol/L (137-145) 02/03/19 07:33 Potassium 3.1 mmol/L (3.6-5.0) L 02/03/19 07:33 Chloride 108.6 mmol/L (98-107) H 02/03/19 07:33 Carbon Dioxide 26 mmol/L (22-30) 02/03/19 07:33 11 mmol/L 02/03/19 07:33 BUN 8 mg/dL (9-20) L 02/03/19 07:33 1.0 mg/dL (0.8-1.5) 02/03/19 07:33 Estimated GFR > 60 ml/min 02/03/19 07:33 8 % 02/03/19 07:33 Glucose 80 mg/dL (75-100) 02/03/19 07:33 Lactic Acid 1.80 mmol/L (0.7-2.0) 01/31/19 15:15 Calcium 10.7 mg/dL (8.4-10.2) H 02/03/19 07:33 Phosphorus 1.60 mg/dL (2.5-4.5) L 02/03/19 07:33 Magnesium 1.50 mg/dL (1.7-2.3) L 02/03/19 07:33 0.30 mg/dL (0.1-1.2) 02/01/19 05:03 AST 20 units/L (5-40) 02/01/19 05:03 ALT 14 units/L (7-56) 02/01/19 05:03 70 units/L (35-129) 02/01/19 05:03 26.0 umol/L (25-60) 01/31/19 13:00 51 units/L (55-170) L 01/31/19 13:00 0.023 ng/mL (0.00-0.029) 01/31/19 22:55 NT-Pro-B Natriuret Pep 277.7 pg/mL (0-900) 01/31/19 13:00 6.6 g/dL (6.3-8.2) 02/01/19 05:03 2.4 g/dL (3.9-5) L 02/01/19 05:03 0.6 % 02/01/19 05:03 Triglycerides 112 mg/dL (2-149) 01/31/19 12:23 Cholesterol 110 mg/dL (50-199) 01/31/19 12:23 69 mg/dL (50-130) 01/31/19 12:23 29 mg/dL (40-59) L 01/31/19 12:23 3.79 % 01/31/19 12:23 TSH 4.190 mlU/mL (0.270-4.200) 01/31/19 13:00 TSH 4.420 mlU/mL (0.270-4.200) H 01/31/19 13:00 Free T4 1.23 ng/dL (0.76-1.46) 01/31/19 13:00 PTH Intact 593.2 pg/mL (15-65) H 02/02/19 05:49 Jing (Yellow) 01/31/19 14:20 Hazy (Clear) 01/31/19 14:20 5.0 (5.0-7.0) 01/31/19 14:20 Ur Specific [place] 1.024 (1.003-1.030) 01/31/19 14:20 <15 mg/dl mg/dL (Negative) 01/31/19 14:20 Neg mg/dL (Negative) 01/31/19 14:20 Neg mg/dL (Negative) 01/31/19 14:20 Neg (Negative) 01/31/19 14:20 Neg (Negative) 01/31/19 14:20 Neg (Negative) 01/31/19 14:20 2.0 mg/dL (<2.0) 01/31/19 14:20 Ur Leukocyte Esterase Neg (Negative) 01/31/19 14:20 2.0 /HPF (0.0-6.0) 01/31/19 14:20 4.0 /HPF (0.0-6.0) 01/31/19 14:20 U Epithel Cells (Auto) 11.0 /HPF (0-13.0) 01/31/19 14:20 2+ /HPF (Negative) 01/31/19 14:20 2+ /HPF 01/31/19 14:20 37.1 mg/dL (0.1-20.0) H 02/01/19 18:42 67 mmol/L 02/01/19 18:42 Salicylates < 0.3 mg/dL (2.8-20.0) L 01/31/19 13:00 Presumptive negative 01/31/19 14:20 Presumptive positive 01/31/19 14:20 Acetaminophen < 5.0 ug/mL (10.0-30.0) L 01/31/19 13:00 Ur Barbiturates Screen Presumptive negative 01/31/19 14:20 Ur Phencyclidine Scrn Presumptive negative 01/31/19 14:20 Ur Amphetamines Screen Presumptive negative 01/31/19 14:20 U Benzodiazepines Scrn Presumptive negative 01/31/19 14:20 Presumptive negative 01/31/19 14:20 U Marijuana (THC) Screen Presumptive negative 01/31/19 14:20 Disclamer 01/31/19 14:20 Plasma/Serum Alcohol < 0.01 % (0-0.07) 01/31/19 13:00 Active Medications - Current Medications Current Medications: Generic Name Dose Route Start Last Admin Trade Name Freq PRN Reason Stop Dose Admin Acetaminophen 650 mg 01/31/19 16:40 Tylenol PO Q4H PRN Pain MILD(1-3)/Fever >100.5/MORGAN Albuterol 2.5 mg 01/31/19 16:40 Proventil IH Q4HRT PRN Shortness Of Breath Docusate Sodium 100 mg 02/02/19 23:00 02/03/19 10:12 Colace PO 100 mg BID GULSHAN Administration Enoxaparin Sodium 90 mg 01/31/19 22:00 02/03/19 10:13 Lovenox 1 mg/kg (90 mg) 90 mg SUB-Q Administration Q12HR GULSHAN Ceftriaxone Sodium 2 gm in 100 mls @ 200 mls/hr 01/31/19 14:00 02/03/19 10:14 Rocephin/Ns 2 Gm/100 Ml IV 200 mls/hr Q24HR GULSHAN Administration Protocol Azithromycin 500 mg/ Sodium 250 mls @ 250 mls/hr 01/31/19 14:00 02/02/19 19:38 Chloride IV 250 mls/hr Q24HR GULSHAN Administration Protocol Sodium Chloride 1,000 mls @ 100 mls/hr 02/01/19 09:00 02/03/19 06:30 Nacl 0.9% 1000 Ml IV 100 mls/hr DIRECT GULSHAN Administration Potassium Phosphate 45 mmol/ 515 mls @ 85 mls/hr 02/03/19 11:00 Sodium Chloride IV 02/03/19 17:03 ONCE ONE Magnesium Sulfate 4 gm in 100 mls @ 25 mls/hr 02/03/19 11:00 Magnesium Sulfate 4gm/100ml IV 02/03/19 14:59 ONCE ONE Methadone HCl 80 mg 02/02/19 10:00 02/03/19 10:12 Dolophine PO 80 mg QDAY GULSHAN Administration Ondansetron HCl 4 mg 01/31/19 16:40 Zofran IV Q8H PRN Nausea And Vomiting Polyethylene Glycol 17 gm 02/02/19 22:31 Miralax 3350 PO QDAY PRN Constipation Potassium Chloride 40 meq 02/03/19 11:32 K-Dur PO 02/03/19 11:33 ONCE ONE Sodium Chloride 10 ml 01/31/19 22:00 02/03/19 10:14 Sodium Chloride Flush Syringe 10 Ml IV 10 ml BID GULSHAN Administration Sodium Chloride 10 ml 01/31/19 16:40 Sodium Chloride Flush Syringe 10 Ml IV PRN PRN LINE FLUSH
[2019-02-03] MEDS: ZITHROMAX 500 MG in NACL 0.9% 250ML 250 ML IV SCH (12:13)
[2019-02-03] MEDS ORDERED: K-DUR PO ONE (12:32)
[2019-02-03] MEDS ORDERED: KPHOS 40 MMOL in NACL 0.9% 500 ML 500 ML IV ONE (13:33)
[2019-02-04 07:19] LABS: BUN/Creatinine Ratio 8; Blood Urea Nitrogen 8 mg/dL (9-20); Calcium 9.5 mg/dL (8.4-10.2); Hemolysis Index 25
--- NOTE | 2019-02-04 09:24 | Progress Note ---
Assessment and Plan 1. Hypercalcemia: Hypercalcemia associated with hyperparathyroidism adenoma. Parathyroid scan showed left inferior adenoma. Continue IV fluids. Vit.D level pending. Calcium level is better. 2. Acute kidney injury: Vasomotor / hemodynamic AJAY in the setting of volume depletion. CT abdomen was negative for hydro. Continue IV fluids. Monitor renal function. Renal function has improved. Avoid nephrotoxic agents. 3. FEN: Replete K and Phos. Monitor lytes. 4. R LE DVT and PE: Started on Eliquis. 5. AMS. 6. Chronic pain syndrome with h/o opiod addiction: On Methadone. 7. Elevated Troponin. Subjective Date of service: 02/04/19 Interval history: Patient was seen and examined at the bedside. No new complaint. Objective - Vital Signs Vital signs: Vital Signs - 12hr 02/04/19 02/04/19 02/04/19 00:00 01:00 04:29 Temperature 98.2 F Pulse Rate 72 54 L 66 Respiratory 21 20 Rate Blood Pressure 115/72 109/64 O2 Sat by Pulse 97 93 Oximetry 02/04/19 02/04/19 04:30 08:18 Temperature 98.1 F 97.6 F Pulse Rate 67 Respiratory 18 Rate Blood Pressure 116/69 O2 Sat by Pulse 84 Oximetry - General Appearance General appearance: well-developed, well-nourished, appears stated age, obese, other (no distress) EENT: ATNC, PERRL, mucous membranes moist, hearing intact, vision intact Neck: supple Respiratory: Present: Clear to Ascultation Cardiology: regular, S1S2, no murmurs Gastrointestinal: normoactive bowel sounds, no tenderness, no distended, obese Integumentary: no rash, chronic venous stasis Neurologic: no focal deficit, no asterixis, alert and oriented x3 Musculoskeletal: other (R LE edema noted) - Lab 02/01/19 05:03 02/04/19 06:06 Most recent lab results Calcium 9.5 mg/dL (8.4-10.2) 02/04/19 06:06 Phosphorus 2.20 mg/dL (2.5-4.5) L D 02/04/19 06:06 Magnesium 1.70 mg/dL (1.7-2.3) 02/04/19 06:06 37.1 mg/dL (0.1-20.0) H 02/01/19 18:42 67 mmol/L 02/01/19 18:42 Medications & Allergies - Medications Allergies/Adverse Reactions: Allergies codeine Allergy (Verified 07/18/14 21:55) Unknown Home Medications: Home Medications Medication Instructions Recorded Confirmed Last Taken Type Methadone 80 mg PO DAILY 01/31/19 01/31/19 Unknown History Active Medications: Generic Name Dose Route Start Last Admin Trade Name Freq PRN Reason Stop Dose Admin Acetaminophen 650 mg 01/31/19 16:40 Tylenol PO Q4H PRN Pain MILD(1-3)/Fever >100.5/MORGAN Albuterol 2.5 mg 01/31/19 16:40 Proventil IH Q4HRT PRN Shortness Of Breath Docusate Sodium 100 mg 02/02/19 23:00 02/03/19 21:44 Colace PO 100 mg BID GULSHAN Administration Enoxaparin Sodium 90 mg 01/31/19 22:00 02/03/19 21:44 Lovenox 1 mg/kg (90 mg) 90 mg SUB-Q Administration Q12HR GULSHAN Ceftriaxone Sodium 2 gm in 100 mls @ 200 mls/hr 01/31/19 14:00 02/03/19 10:14 Rocephin/Ns 2 Gm/100 Ml IV 200 mls/hr Q24HR GULSHAN Administration Protocol Azithromycin 500 mg/ Sodium 250 mls @ 250 mls/hr 01/31/19 14:00 02/03/19 12:13 Chloride IV 250 mls/hr Q24HR GULSHAN Administration Protocol Sodium Chloride 1,000 mls @ 100 mls/hr 02/01/19 09:00 02/03/19 06:30 Nacl 0.9% 1000 Ml IV 100 mls/hr DIRECT GULSHAN Administration Methadone HCl 80 mg 02/02/19 10:00 02/03/19 10:12 Dolophine PO 80 mg QDAY GULSHAN Administration Ondansetron HCl 4 mg 01/31/19 16:40 Zofran IV Q8H PRN Nausea And Vomiting Polyethylene Glycol 17 gm 02/02/19 22:31 Miralax 3350 PO QDAY PRN Constipation Sodium Chloride 10 ml 01/31/19 22:00 02/03/19 21:45 Sodium Chloride Flush Syringe 10 Ml IV 10 ml BID GULSHAN Administration Sodium Chloride 10 ml 01/31/19 16:40 Sodium Chloride Flush Syringe 10 Ml IV PRN PRN LINE FLUSH
[2019-02-04] MEDS: ROCEPHIN/NS 2 GM/100 ML 2 GM/100 ML BAG IV SCH (10:13)
[2019-02-04] MEDS: DOLOPHINE PO SCH (10:14)
[2019-02-04] MEDS: COLACE PO SCH ×2 (10:15→21:26)
[2019-02-04] MEDS: LOVENOX SUB-Q SCH (10:16)
[2019-02-04] MEDS: ZITHROMAX 500 MG in NACL 0.9% 250ML 250 ML IV SCH (10:17)
[2019-02-04] MEDS: SODIUM CHLORIDE FLUSH SYRINGE 10 ML IV SCH ×2 (10:31→21:30)
[2019-02-04] MEDS ORDERED: KPHOS 40 MMOL in NACL 0.9% 500 ML 500 ML IV ONE (11:30)
[2019-02-04] MEDS: NACL 0.9% 1000 ML 1,000 ML IV SCH ×2 (12:08→21:29)
--- NOTE | 2019-02-04 17:22 | Progress Note ---
Assessment and Plan Assessment and plan: --Acute bilateral PE and right LE DVT: On Therapeutic dose of Lovenox. Transition to [facility] Lovenox, supportive care --Acute metabolic encephalopathy, present on admission Likely from hypercalcemia and acute bilateral PE Continue IV fluid, anticoagulation, monitor electrolytes Mental status currently at baseline --Hypercalcemia: Resolved likely malignancy related vs hyperparathyroidism Presented with Suspected bony metastasis/lesion - possible source from prostate? IV pamidronate ordered, Continue IV fluids and Lasix twice a day. Check PSA, and Vit.D, elevated PTH Monitor Calcium level, nephrology following --Acute kidney injury: Vasomotor nephropathy Resolved, and wide nephrotoxins CT abdomen was negative for hydro. Continue IV fluids, nephrology following -- Chronic pain syndrome with h/o opiod addiction: On Methadone. -- Elevated Troponin/N STEMI type II; Cardiology evaluated, medical management Consults and recommendations noted and appreciated ambulate as tolerated, possible discharge home tomorrow if stable Plan of care reviewed with the patient and his nurse History Interval history: Patient seen and examined medical records reviewed Events reported by the nursing Patient admitted with PE and DVT On anticoagulation with Lovenox Patient feels better no new complaints Vital signs noted Hospitalist Physical - Constitutional Vitals: Temp Pulse Resp BP Pulse Ox 97.6 F 60 18 116/69 97 02/04/19 08:18 02/04/19 14:00 02/04/19 14:00 02/04/19 08:18 02/04/19 14:00 General appearance: Present: mild distress, obese - EENT Eyes: Present: PERRL, EOM intact - Neck Neck: Present: supple, normal ROM - Respiratory Respiratory effort: normal Respiratory: bilateral: diminished, negative: rales, rhonchi, wheezing - Cardiovascular Rhythm: regular Heart Sounds: Present: S1 & S2 - Extremities Extremities: no ischemia, No edema - Abdominal General gastrointestinal: soft, non-tender, non-distended, normal bowel sounds - Integumentary Integumentary: Present: clear, warm - Psychiatric Psychiatric: appropriate mood/affect, cooperative - Neurologic Neurologic: CNII-XII intact, moves all extremities Results - Labs CBC & Chem 7: 02/01/19 05:03 02/04/19 06:06 Labs: Laboratory Last Values WBC 14.0 K/mm3 (4.5-11.0) H 02/01/19 05:03 RBC 3.88 M/mm3 (3.65-5.03) 02/01/19 05:03 Hgb 12.4 gm/dl (11.8-15.2) 02/01/19 05:03 Hct 37.3 % (35.5-45.6) 02/01/19 05:03 MCV 96 fl (84-94) H 02/01/19 05:03 MCH 32 pg (28-32) 02/01/19 05:03 MCHC 33 % (32-34) 02/01/19 05:03 RDW 13.5 % (13.2-15.2) 02/01/19 05:03 Plt Count 178 K/mm3 (140-440) 02/01/19 05:03 Lymph % (Auto) 13.5 % (13.4-35.0) 02/01/19 05:03 [place] % (Auto) 6.7 % (0.0-7.3) 02/01/19 05:03 Eos % (Auto) 0.2 % (0.0-4.3) 02/01/19 05:03 Baso % (Auto) 0.2 % (0.0-1.8) 02/01/19 05:03 Lymph # 1.9 K/mm3 (1.2-5.4) 02/01/19 05:03 [place] # 0.9 K/mm3 (0.0-0.8) H 02/01/19 05:03 Eos # 0.0 K/mm3 (0.0-0.4) 02/01/19 05:03 Baso # 0.0 K/mm3 (0.0-0.1) 02/01/19 05:03 Seg Neutrophils % 79.4 % (40.0-70.0) H 02/01/19 05:03 Seg Neutrophils # 11.2 K/mm3 (1.8-7.7) H 02/01/19 05:03 PT 13.0 Sec. (12.2-14.9) 01/31/19 13:00 INR 1.01 (0.87-1.13) 01/31/19 13:00 Sodium 143 mmol/L (137-145) 02/04/19 06:06 Potassium 3.5 mmol/L (3.6-5.0) L 02/04/19 06:06 Chloride 109.9 mmol/L (98-107) H 02/04/19 06:06 Carbon Dioxide 24 mmol/L (22-30) 02/04/19 06:06 13 mmol/L 02/04/19 06:06 BUN 8 mg/dL (9-20) L 02/04/19 06:06 1.0 mg/dL (0.8-1.5) 02/04/19 06:06 Estimated GFR > 60 ml/min 02/04/19 06:06 8 % 02/04/19 06:06 Glucose 89 mg/dL (75-100) 02/04/19 06:06 Lactic Acid 1.80 mmol/L (0.7-2.0) 01/31/19 15:15 Calcium 9.5 mg/dL (8.4-10.2) 02/04/19 06:06 8.8 mg/dL (4.8-5.6) H* 01/31/19 16:45 Phosphorus 2.20 mg/dL (2.5-4.5) L D 02/04/19 06:06 Magnesium 1.70 mg/dL (1.7-2.3) 02/04/19 06:06 0.30 mg/dL (0.1-1.2) 02/01/19 05:03 AST 20 units/L (5-40) 02/01/19 05:03 ALT 14 units/L (7-56) 02/01/19 05:03 70 units/L (35-129) 02/01/19 05:03 26.0 umol/L (25-60) 01/31/19 13:00 51 units/L (55-170) L 01/31/19 13:00 0.023 ng/mL (0.00-0.029) 01/31/19 22:55 NT-Pro-B Natriuret Pep 277.7 pg/mL (0-900) 01/31/19 13:00 6.6 g/dL (6.3-8.2) 02/01/19 05:03 2.4 g/dL (3.9-5) L 02/01/19 05:03 0.6 % 02/01/19 05:03 Triglycerides 112 mg/dL (2-149) 01/31/19 12:23 Cholesterol 110 mg/dL (50-199) 01/31/19 12:23 69 mg/dL (50-130) 01/31/19 12:23 29 mg/dL (40-59) L 01/31/19 12:23 3.79 % 01/31/19 12:23 TSH 4.190 mlU/mL (0.270-4.200) 01/31/19 13:00 TSH 4.420 mlU/mL (0.270-4.200) H 01/31/19 13:00 Free T4 1.23 ng/dL (0.76-1.46) 01/31/19 13:00 PTH Intact 593.2 pg/mL (15-65) H 02/02/19 05:49 Jing (Yellow) 01/31/19 14:20 Hazy (Clear) 01/31/19 14:20 5.0 (5.0-7.0) 01/31/19 14:20 Ur Specific [place] 1.024 (1.003-1.030) 01/31/19 14:20 <15 mg/dl mg/dL (Negative) 01/31/19 14:20 Neg mg/dL (Negative) 01/31/19 14:20 Neg mg/dL (Negative) 01/31/19 14:20 Neg (Negative) 01/31/19 14:20 Neg (Negative) 01/31/19 14:20 Neg (Negative) 01/31/19 14:20 2.0 mg/dL (<2.0) 01/31/19 14:20 Ur Leukocyte Esterase Neg (Negative) 01/31/19 14:20 2.0 /HPF (0.0-6.0) 01/31/19 14:20 4.0 /HPF (0.0-6.0) 01/31/19 14:20 U Epithel Cells (Auto) 11.0 /HPF (0-13.0) 01/31/19 14:20 2+ /HPF (Negative) 01/31/19 14:20 2+ /HPF 01/31/19 14:20 37.1 mg/dL (0.1-20.0) H 02/01/19 18:42 67 mmol/L 02/01/19 18:42 Salicylates < 0.3 mg/dL (2.8-20.0) L 01/31/19 13:00 Presumptive negative 01/31/19 14:20 Presumptive positive 01/31/19 14:20 Acetaminophen < 5.0 ug/mL (10.0-30.0) L 01/31/19 13:00 Ur Barbiturates Screen Presumptive negative 01/31/19 14:20 Ur Phencyclidine Scrn Presumptive negative 01/31/19 14:20 Ur Amphetamines Screen Presumptive negative 01/31/19 14:20 U Benzodiazepines Scrn Presumptive negative 01/31/19 14:20 Presumptive negative 01/31/19 14:20 U Marijuana (THC) Screen Presumptive negative 01/31/19 14:20 Disclamer 01/31/19 14:20 Plasma/Serum Alcohol < 0.01 % (0-0.07) 01/31/19 13:00 Active Medications - Current Medications Current Medications: Generic Name Dose Route Start Last Admin Trade Name Freq PRN Reason Stop Dose Admin Acetaminophen 650 mg 01/31/19 16:40 Tylenol PO Q4H PRN Pain MILD(1-3)/Fever >100.5/MORGAN Albuterol 2.5 mg 01/31/19 16:40 Proventil IH Q4HRT PRN Shortness Of Breath Docusate Sodium 100 mg 02/02/19 23:00 02/04/19 10:15 Colace PO 100 mg BID GULSHAN Administration Enoxaparin Sodium 90 mg 01/31/19 22:00 02/04/19 10:16 Lovenox 1 mg/kg (90 mg) 90 mg SUB-Q Administration Q12HR GULSHAN Ceftriaxone Sodium 2 gm in 100 mls @ 200 mls/hr 01/31/19 14:00 02/04/19 10:13 Rocephin/Ns 2 Gm/100 Ml IV 200 mls/hr Q24HR GULSHAN Administration Protocol Azithromycin 500 mg/ Sodium 250 mls @ 250 mls/hr 01/31/19 14:00 02/04/19 10:17 Chloride IV 250 mls/hr Q24HR GULSHAN Administration Protocol Sodium Chloride 1,000 mls @ 100 mls/hr 02/01/19 09:00 02/04/19 12:08 Nacl 0.9% 1000 Ml IV 100 mls/hr DIRECT GULSHAN Administration Potassium Phosphate 40 mmol/ 513.3333 mls @ 83 mls/hr 02/04/19 11:30 02/04/19 12:08 Sodium Chloride IV 02/04/19 17:41 83 mls/hr ONCE ONE Administration Methadone HCl 80 mg 02/02/19 10:00 02/04/19 10:14 Dolophine PO 80 mg QDAY GULSHAN Administration Ondansetron HCl 4 mg 01/31/19 16:40 Zofran IV Q8H PRN Nausea And Vomiting Polyethylene Glycol 17 gm 02/02/19 22:31 Miralax 3350 PO QDAY PRN Constipation Sodium Chloride 10 ml 01/31/19 22:00 02/04/19 10:31 Sodium Chloride Flush Syringe 10 Ml IV 10 ml BID GULSHAN Administration Sodium Chloride 10 ml 01/31/19 16:40 Sodium Chloride Flush Syringe 10 Ml IV PRN PRN LINE FLUSH
[2019-02-04] MEDS: ELIQUIS PO SCH (21:26)
[2019-02-05] MEDS: NACL 0.9% 1000 ML 1,000 ML IV SCH (05:38)
[2019-02-05 06:54] LABS: BUN/Creatinine Ratio 9; Blood Urea Nitrogen 8 mg/dL (9-20); Calcium 8.7 mg/dL (8.4-10.2); Hemolysis Index 16
[2019-02-05 08:14] LABS: Vitamin D, 25-OH, D2 <4 ng/mL
[2019-02-05] MEDS ORDERED: MAGNESIUM SULFATE 2GM/50ML 2 GM/50 ML BAG IV ONE (09:00)
[2019-02-05] MEDS ORDERED: KPHOS 45 MMOL in NACL 0.9% 500 ML 500 ML IV ONE (09:00)
[2019-02-05] MEDS: ZITHROMAX 500 MG in NACL 0.9% 250ML 250 ML IV SCH (09:19)
[2019-02-05] MEDS: ROCEPHIN/NS 2 GM/100 ML 2 GM/100 ML BAG IV SCH (09:20)
[2019-02-05] MEDS: DOLOPHINE PO SCH (09:32)
[2019-02-05] MEDS: COLACE PO SCH ×2 (09:33→21:28)
[2019-02-05] MEDS: ELIQUIS PO SCH ×2 (09:33→21:28)
--- NOTE | 2019-02-05 09:59 | Progress Note ---
Assessment and Plan 1. Hypercalcemia: Hypercalcemia associated with hyperparathyroidism adenoma. Parathyroid scan showed left inferior adenoma. Patient was advised to see [employer] for further evaluation of parathyroid adenoma. Calcium level is better. 2. Acute kidney injury: Vasomotor / hemodynamic AJAY in the setting of volume depletion. CT abdomen was negative for hydro. Monitor renal function. Renal function has improved. Avoid nephrotoxic agents. 3. FEN: Replete K and Phos. Monitor lytes. 4. R LE DVT and PE: On Eliquis. 5. AMS. 6. Chronic pain syndrome with h/o opiod addiction: On Methadone. 7. Elevated Troponin. Subjective Date of service: 02/05/19 Interval history: Patient was seen and examined at the bedside. No new complaint. Objective - Vital Signs Vital signs: Vital Signs - 12hr 02/04/19 02/04/19 02/04/19 22:00 23:01 23:18 Temperature 98.0 F Pulse Rate 57 L Respiratory 20 18 Rate Blood Pressure 121/64 Blood Pressure [Right] O2 Sat by Pulse 96 96 97 Oximetry 02/05/19 02/05/19 02/05/19 01:00 03:35 05:00 Temperature 98.0 F 97.3 F L Pulse Rate 52 L 63 95 H Respiratory 18 20 Rate Blood Pressure 134/76 Blood Pressure 95/74 [Right] O2 Sat by Pulse 96 96 Oximetry 02/05/19 08:13 Temperature 98.7 F Pulse Rate 52 L Respiratory 18 Rate Blood Pressure 107/62 Blood Pressure [Right] O2 Sat by Pulse 83 L Oximetry - General Appearance General appearance: well-developed, well-nourished, appears stated age, obese, other (no distress) EENT: ATNC, PERRL, mucous membranes moist, hearing intact, vision intact Neck: supple Respiratory: Present: Clear to Ascultation Cardiology: regular, S1S2, no murmurs Gastrointestinal: normoactive bowel sounds, no tenderness, no distended Integumentary: chronic venous stasis Neurologic: no focal deficit, no asterixis, alert and oriented x3 Musculoskeletal: other (R LE edema noted) Psychiatric: cooperative - Lab 02/01/19 05:03 02/05/19 05:51 Most recent lab results Calcium 8.7 mg/dL (8.4-10.2) 02/05/19 05:51 Phosphorus 1.70 mg/dL (2.5-4.5) L D 02/05/19 05:51 Magnesium 1.60 mg/dL (1.7-2.3) L 02/05/19 05:51 37.1 mg/dL (0.1-20.0) H 02/01/19 18:42 67 mmol/L 02/01/19 18:42 Medications & Allergies - Medications Allergies/Adverse Reactions: Allergies codeine Allergy (Verified 07/18/14 21:55) Unknown Home Medications: Home Medications Medication Instructions Recorded Confirmed Last Taken Type Methadone 80 mg PO DAILY 01/31/19 01/31/19 Unknown History Apixaban [Eliquis] 5 mg PO BID #42 tablet 02/05/19 Unknown Rx Apixaban [Eliquis] 10 mg PO Q12HR #24 tablet 02/05/19 Unknown Rx Docusate Sodium [Colace CAP] 100 mg PO BID PRN #30 capsule 02/05/19 Unknown Rx Magnesium Oxide [Mag-Ox] 400 mg PO QDAY #7 tablet 02/05/19 Unknown Rx Sodium,Potassium Phosphates 1 each PO BID #10 powd.pack 02/05/19 Unknown Rx [Phos-Nak Packet] Active Medications: Generic Name Dose Route Start Last Admin Trade Name Freq PRN Reason Stop Dose Admin Acetaminophen 650 mg 01/31/19 16:40 Tylenol PO Q4H PRN Pain MILD(1-3)/Fever >100.5/MORGAN Albuterol 2.5 mg 01/31/19 16:40 Proventil IH Q4HRT PRN Shortness Of Breath Apixaban 10 mg 02/04/19 22:00 02/05/19 09:33 Eliquis PO 02/11/19 10:01 10 mg Q12HR GULSHAN Administration Protocol Docusate Sodium 100 mg 02/02/19 23:00 02/05/19 09:33 Colace PO 100 mg BID GULSHAN Administration Ceftriaxone Sodium 2 gm in 100 mls @ 200 mls/hr 01/31/19 14:00 02/05/19 09:20 Rocephin/Ns 2 Gm/100 Ml IV 200 mls/hr Q24HR GULSHAN Administration Protocol Azithromycin 500 mg/ Sodium 250 mls @ 250 mls/hr 01/31/19 14:00 02/05/19 09:19 Chloride IV 250 mls/hr Q24HR GULSHAN Administration Protocol Sodium Chloride 1,000 mls @ 100 mls/hr 02/01/19 09:00 02/05/19 05:38 Nacl 0.9% 1000 Ml IV 100 mls/hr DIRECT GULSHAN Administration Potassium Phosphate 45 mmol/ 515 mls @ 85 mls/hr 02/05/19 09:00 02/05/19 08:31 Sodium Chloride IV 02/05/19 15:03 85 mls/hr ONCE ONE Administration Magnesium Sulfate 2 gm in 50 mls @ 25 mls/hr 02/05/19 09:00 02/05/19 08:31 Magnesium Sulfate 2gm/50ml IV 02/05/19 10:59 25 mls/hr ONCE ONE Administration Methadone HCl 80 mg 02/02/19 10:00 02/05/19 09:32 Dolophine PO 80 mg QDAY GULSHAN Administration Ondansetron HCl 4 mg 01/31/19 16:40 Zofran IV Q8H PRN Nausea And Vomiting Polyethylene Glycol 17 gm 02/02/19 22:31 Miralax 3350 PO QDAY PRN Constipation Sodium Chloride 10 ml 01/31/19 22:00 02/04/19 21:30 Sodium Chloride Flush Syringe 10 Ml IV 10 ml BID GULSHAN Administration Sodium Chloride 10 ml 01/31/19 16:40 Sodium Chloride Flush Syringe 10 Ml IV PRN PRN LINE FLUSH
[2019-02-05] MEDS: SODIUM CHLORIDE FLUSH SYRINGE 10 ML IV SCH ×2 (11:16→21:28)
--- NOTE | 2019-02-05 14:51 | Discharge Summary ---
Providers - Providers Date of Admission: 01/31/19 16:40 Date of discharge: 02/05/19 Attending physician: ILYA HERNÁNDEZ 01/31/19 Consult to Cardiac Rehabilitation [CONS] Routine Reason For Exam: Phase I 02/01/19 11:31 Consult to Physician [CONS] Routine Comment: Consulting Provider: WIL GALLEGOS Physician Instructions: Reason For Exam: hypercalcemia 02/03/19 04:37 Consult to Wound/ET Nurse [CONS] Routine Reason For Exam: wound eval 02/04/19 12:28 Physical Therapy Evaluation and Treat [CONS] Routine Comment: Reason For Exam: PE/DVT,gen debility [facility] Hospital[facility] Condition: Stable Hospital course: --Acute bilateral PE and right LE DVT: On Therapeutic dose of Lovenox. 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 IV pamidronate ordered, Continue IV fluids and Lasix twice a day. Check PSA, and Vit.D, elevated PTH Monitor Calcium level, nephrology following --Acute kidney injury: Vasomotor nephropathy Resolved, and wide nephrotoxins CT abdomen was negative for hydro. Continue IV fluids, nephrology following -- Chronic pain syndrome with h/o opiod addiction: On Methadone. -- Elevated Troponin/N STEMI type II; Cardiology evaluated, medical management Consults and recommendations noted and appreciated ambulate as tolerated, possible discharge home tomorrow if stable Plan of care reviewed with the patient and his nurse Disposition: [id number]/[place]-06 HOME UNDER HOME [facility] Time spent for discharge: 32 min Core Measure Documentation - Palliative Care Palliative Care/ Comfort Measures: Not Applicable - Core Measures Any of the following diagnoses?: DVT/PE - VTE Discharge Requirements Deep Vein Thrombosis/Pulmonary Embolism Present on Admission: Yes Has pt received <5 days of overlap therapy or INR<2.0: No ( On Eliquis) Anticoagulant overlap therapy prescribed at discharge: No Contraindication No Overlap Therapy order at DC: Not Indicated (on Eliquis) Exam - Constitutional Vitals: Temp Pulse Resp BP Pulse Ox 98.7 F 52 L 18 107/62 83 L 02/05/19 08:13 02/05/19 09:00 02/05/19 08:13 02/05/19 08:13 02/05/19 08:13 General appearance: Present: no acute distress, well-nourished - EENT Eyes: Present: PERRL, EOM intact - Neck Neck: Present: supple, normal ROM - Respiratory Respiratory effort: normal Respiratory: bilateral: diminished, rhonchi, negative: rales, wheezing - Cardiovascular Heart Sounds: Present: S1 & S2 - Extremities Extremities: no ischemia, pulses intact - Abdominal General gastrointestinal: Present: soft, non-tender, non-distended, normal bowel sounds - Integumentary Integumentary: Present: clear, warm - Musculoskeletal Musculoskeletal: strength equal bilaterally, generalized weakness - Psychiatric Psychiatric: appropriate mood/affect, cooperative - Neurologic Neurologic: CNII-XII intact, moves all extremities Plan Activity: advance as tolerated, fall precautions Diet: regular Special Instructions: physical therapy Additional Instructions: Fall precautions. additional prescriptions for Eliquis will be given by PMD. If you notice any bleeding stop Eliquis and contact M.D. Check Mag.Phosp levels at Nephrology office in 1 week. Advised to see [facility] in 1 week Follow up with: LUIS ROGERS MD [Staff Physician] - 14 Days WIL GALLEGOS MD [Staff Physician] - 7 Days [facility] MD LYRIC [Primary Care Provider] - 7 Days Prescriptions: RX: Docusate Sodium [Colace CAP] 100 mg PO BID PRN #30 capsule PRN Reason: Constipation RX: Apixaban [Eliquis] 10 mg PO Q12HR #24 tablet Apixaban [Eliquis] 5 mg PO BID #42 tablet Magnesium Oxide [Mag-Ox] 400 mg PO QDAY #7 tablet Sodium,Potassium Phosphates [Phos-Nak Packet] 1 each PO BID #10 powd.pack
[2019-02-06 06:12] LABS: BUN/Creatinine Ratio 8; Blood Urea Nitrogen 8 mg/dL (9-20); Calcium 8.3 mg/dL (8.4-10.2); Hemolysis Index 17
[2019-02-06] MEDS ORDERED: MAGNESIUM SULFATE 4GM/100ML 4 GM/100 ML BAG IV ONE (07:55)
[2019-02-06] MEDS ORDERED: KPHOS 45 MMOL in NACL 0.9% 500 ML 500 ML IV ONE (07:55)
[2019-02-06 08:20] VITALS: BP 117/69
[2019-02-06] MEDS ORDERED: MAGNESIUM SULFATE 2GM/50ML 2 GM/50 ML BAG IV ONE (08:32)
--- NOTE | 2019-02-06 09:34 | Progress Note ---
Assessment and Plan 1. Hypercalcemia: Hypercalcemia associated with hyperparathyroidism adenoma. Parathyroid scan showed left inferior adenoma. Patient was advised to see [employer] for further evaluation of parathyroid adenoma. He was also given information about near by [employer]. Calcium level is better. 2. Acute kidney injury: Vasomotor / hemodynamic AJAY in the setting of volume depletion. CT abdomen was negative for hydro. Monitor renal function. Renal function has improved. Avoid nephrotoxic agents. 3. FEN: Replete K and Phos. Monitor lytes. 4. R LE DVT and PE: On Eliquis. 5. AMS. 6. Chronic pain syndrome with h/o opiod addiction: On Methadone. 7. Elevated Troponin. F/u with me in 1-2 weeks. Subjective Date of service: 02/06/19 Interval history: Patient was seen and examined at the bedside. No new complaint. Objective - Vital Signs Vital signs: Vital Signs - 12hr 02/05/19 02/06/19 02/06/19 23:39 04:18 08:19 Temperature 97.0 F L 98.0 F 98.3 F Pulse Rate 60 59 L 62 Respiratory 18 18 16 Rate Blood Pressure 104/60 117/53 117/69 O2 Sat by Pulse 99 98 99 Oximetry - General Appearance General appearance: well-developed, well-nourished, appears stated age, other (no distress) EENT: ATNC, PERRL, hearing intact, vision intact Neck: supple Respiratory: Present: Clear to Ascultation Cardiology: regular, S1S2, no murmurs Gastrointestinal: normoactive bowel sounds, no tenderness, no distended Integumentary: warm and dry, chronic venous stasis Neurologic: no focal deficit, no asterixis, alert and oriented x3 Musculoskeletal: other (Trace LE edema noted) Psychiatric: cooperative - Lab 02/01/19 05:03 02/06/19 05:25 Most recent lab results Calcium 8.3 mg/dL (8.4-10.2) L 02/06/19 05:25 Phosphorus 2.00 mg/dL (2.5-4.5) L 02/06/19 05:25 Magnesium 1.60 mg/dL (1.7-2.3) L 02/06/19 05:25 37.1 mg/dL (0.1-20.0) H 02/01/19 18:42 67 mmol/L 02/01/19 18:42 Medications & Allergies - Medications Allergies/Adverse Reactions: Allergies codeine Allergy (Verified 07/18/14 21:55) Unknown Home Medications: Home Medications Medication Instructions Recorded Confirmed Last Taken Type Methadone 80 mg PO DAILY 01/31/19 01/31/19 Unknown History Apixaban [Eliquis] 5 mg PO BID #42 tablet 02/05/19 Unknown Rx Apixaban [Eliquis] 10 mg PO Q12HR #24 tablet 02/05/19 Unknown Rx Docusate Sodium [Colace CAP] 100 mg PO BID PRN #30 capsule 02/05/19 Unknown Rx Magnesium Oxide [Mag-Ox] 400 mg PO QDAY #7 tablet 02/05/19 Unknown Rx Sodium,Potassium Phosphates 1 each PO BID #10 powd.pack 02/05/19 Unknown Rx [Phos-Nak Packet] Active Medications: Generic Name Dose Route Start Last Admin Trade Name Freq PRN Reason Stop Dose Admin Acetaminophen 650 mg 01/31/19 16:40 Tylenol PO Q4H PRN Pain MILD(1-3)/Fever >100.5/MORGAN Albuterol 2.5 mg 01/31/19 16:40 Proventil IH Q4HRT PRN Shortness Of Breath Apixaban 10 mg 02/04/19 22:00 02/05/19 21:28 Eliquis PO 02/11/19 10:01 10 mg Q12HR GULSHAN Administration Protocol Docusate Sodium 100 mg 02/02/19 23:00 02/05/19 21:28 Colace PO 100 mg BID GULSHAN Administration Ceftriaxone Sodium 2 gm in 100 mls @ 200 mls/hr 01/31/19 14:00 02/05/19 09:20 Rocephin/Ns 2 Gm/100 Ml IV 200 mls/hr Q24HR GULSHAN Administration Protocol Azithromycin 500 mg/ Sodium 250 mls @ 250 mls/hr 01/31/19 14:00 02/05/19 09:19 Chloride IV 250 mls/hr Q24HR GULSHAN Administration Protocol Potassium Phosphate 45 mmol/ 515 mls @ 85 mls/hr 02/06/19 07:55 Sodium Chloride IV 02/06/19 13:58 ONCE ONE Magnesium Sulfate 4 gm in 100 mls @ 25 mls/hr 02/06/19 07:55 Magnesium Sulfate 4gm/100ml IV 02/06/19 11:54 ONCE ONE Methadone HCl 80 mg 02/02/19 10:00 02/05/19 09:32 Dolophine PO 80 mg QDAY GULSHAN Administration Ondansetron HCl 4 mg 01/31/19 16:40 Zofran IV Q8H PRN Nausea And Vomiting Polyethylene Glycol 17 gm 02/02/19 22:31 Miralax 3350 PO QDAY PRN Constipation Sodium Chloride 10 ml 01/31/19 22:00 02/05/19 21:28 Sodium Chloride Flush Syringe 10 Ml IV 10 ml BID GULSHAN Administration Sodium Chloride 10 ml 01/31/19 16:40 Sodium Chloride Flush Syringe 10 Ml IV PRN PRN LINE FLUSH
[2019-02-06] MEDS: ZITHROMAX 500 MG in NACL 0.9% 250ML 250 ML IV SCH ×2 (10:45→19:02)
[2019-02-06] MEDS: DOLOPHINE PO SCH (10:46)
[2019-02-06] MEDS: ROCEPHIN/NS 2 GM/100 ML 2 GM/100 ML BAG IV SCH ×2 (10:46→19:01)
[2019-02-06] MEDS: ELIQUIS PO SCH (10:47)
[2019-02-06] MEDS: COLACE PO SCH (10:47)
--- NOTE | 2019-02-06 12:23 | Progress Note ---
Hospitalist Physical - Constitutional Vitals: Temp Pulse Resp BP Pulse Ox 98.3 F 62 16 117/69 99 02/06/19 08:19 02/06/19 08:19 02/06/19 08:19 02/06/19 08:19 02/06/19 08:19 General appearance: Present: mild distress, obese Results - Labs CBC & Chem 7: 02/01/19 05:03 02/06/19 05:25 Labs: Laboratory Last Values WBC 14.0 K/mm3 (4.5-11.0) H 02/01/19 05:03 RBC 3.88 M/mm3 (3.65-5.03) 02/01/19 05:03 Hgb 12.4 gm/dl (11.8-15.2) 02/01/19 05:03 Hct 37.3 % (35.5-45.6) 02/01/19 05:03 MCV 96 fl (84-94) H 02/01/19 05:03 MCH 32 pg (28-32) 02/01/19 05:03 MCHC 33 % (32-34) 02/01/19 05:03 RDW 13.5 % (13.2-15.2) 02/01/19 05:03 Plt Count 178 K/mm3 (140-440) 02/01/19 05:03 Lymph % (Auto) 13.5 % (13.4-35.0) 02/01/19 05:03 Dane % (Auto) 6.7 % (0.0-7.3) 02/01/19 05:03 Eos % (Auto) 0.2 % (0.0-4.3) 02/01/19 05:03 Baso % (Auto) 0.2 % (0.0-1.8) 02/01/19 05:03 Lymph # 1.9 K/mm3 (1.2-5.4) 02/01/19 05:03 Dane # 0.9 K/mm3 (0.0-0.8) H 02/01/19 05:03 Eos # 0.0 K/mm3 (0.0-0.4) 02/01/19 05:03 Baso # 0.0 K/mm3 (0.0-0.1) 02/01/19 05:03 Seg Neutrophils % 79.4 % (40.0-70.0) H 02/01/19 05:03 Seg Neutrophils # 11.2 K/mm3 (1.8-7.7) H 02/01/19 05:03 PT 13.0 Sec. (12.2-14.9) 01/31/19 13:00 INR 1.01 (0.87-1.13) 01/31/19 13:00 Sodium 144 mmol/L (137-145) 02/06/19 05:25 Potassium 3.9 mmol/L (3.6-5.0) 02/06/19 05:25 Chloride 111.5 mmol/L (98-107) H 02/06/19 05:25 Carbon Dioxide 25 mmol/L (22-30) 02/06/19 05:25 11 mmol/L 02/06/19 05:25 BUN 8 mg/dL (9-20) L 02/06/19 05:25 1.0 mg/dL (0.8-1.5) 02/06/19 05:25 Estimated GFR > 60 ml/min 02/06/19 05:25 8 % 02/06/19 05:25 Glucose 84 mg/dL (75-100) 02/06/19 05:25 Lactic Acid 1.80 mmol/L (0.7-2.0) 01/31/19 15:15 Calcium 8.3 mg/dL (8.4-10.2) L 02/06/19 05:25 8.8 mg/dL (4.8-5.6) H* 01/31/19 16:45 Phosphorus 2.00 mg/dL (2.5-4.5) L 02/06/19 05:25 Magnesium 1.60 mg/dL (1.7-2.3) L 02/06/19 05:25 0.30 mg/dL (0.1-1.2) 02/01/19 05:03 AST 20 units/L (5-40) 02/01/19 05:03 ALT 14 units/L (7-56) 02/01/19 05:03 70 units/L (35-129) 02/01/19 05:03 26.0 umol/L (25-60) 01/31/19 13:00 51 units/L (55-170) L 01/31/19 13:00 0.023 ng/mL (0.00-0.029) 01/31/19 22:55 NT-Pro-B Natriuret Pep 277.7 pg/mL (0-900) 01/31/19 13:00 6.6 g/dL (6.3-8.2) 02/01/19 05:03 2.4 g/dL (3.9-5) L 02/01/19 05:03 0.6 % 02/01/19 05:03 Triglycerides 112 mg/dL (2-149) 01/31/19 12:23 Cholesterol 110 mg/dL (50-199) 01/31/19 12:23 69 mg/dL (50-130) 01/31/19 12:23 29 mg/dL (40-59) L 01/31/19 12:23 3.79 % 01/31/19 12:23 Free PSA See scanned result 01/31/19 16:36 % Free PSA Calc See scanned result 01/31/19 16:36 Total PSA See scanned result 01/31/19 16:36 25-OH Vitamin D Total See scanned result 02/02/19 05:49 <4 ng/mL 02/02/19 05:49 1,25 Dihydroxy Vit D2 <8 pg/mL 02/02/19 05:49 9 ng/mL 02/02/19 05:49 1,25 Dihydroxy Vit D3 24 pg/mL 02/02/19 05:49 TSH 4.190 mlU/mL (0.270-4.200) 01/31/19 13:00 TSH 4.420 mlU/mL (0.270-4.200) H 01/31/19 13:00 Free T4 1.23 ng/dL (0.76-1.46) 01/31/19 13:00 PTH Intact 593.2 pg/mL (15-65) H 02/02/19 05:49 Jing (Yellow) 01/31/19 14:20 Hazy (Clear) 01/31/19 14:20 5.0 (5.0-7.0) 01/31/19 14:20 Ur Specific [place] 1.024 (1.003-1.030) 01/31/19 14:20 <15 mg/dl mg/dL (Negative) 01/31/19 14:20 Neg mg/dL (Negative) 01/31/19 14:20 Neg mg/dL (Negative) 01/31/19 14:20 Neg (Negative) 01/31/19 14:20 Neg (Negative) 01/31/19 14:20 Neg (Negative) 01/31/19 14:20 2.0 mg/dL (<2.0) 01/31/19 14:20 Ur Leukocyte Esterase Neg (Negative) 01/31/19 14:20 2.0 /HPF (0.0-6.0) 01/31/19 14:20 4.0 /HPF (0.0-6.0) 01/31/19 14:20 U Epithel Cells (Auto) 11.0 /HPF (0-13.0) 01/31/19 14:20 2+ /HPF (Negative) 01/31/19 14:20 2+ /HPF 01/31/19 14:20 37.1 mg/dL (0.1-20.0) H 02/01/19 18:42 67 mmol/L 02/01/19 18:42 Salicylates < 0.3 mg/dL (2.8-20.0) L 01/31/19 13:00 Presumptive negative 01/31/19 14:20 Presumptive positive 01/31/19 14:20 Acetaminophen < 5.0 ug/mL (10.0-30.0) L 01/31/19 13:00 Ur Barbiturates Screen Presumptive negative 01/31/19 14:20 Ur Phencyclidine Scrn Presumptive negative 01/31/19 14:20 Ur Amphetamines Screen Presumptive negative 01/31/19 14:20 U Benzodiazepines Scrn Presumptive negative 01/31/19 14:20 Presumptive negative 01/31/19 14:20 U Marijuana (THC) Screen Presumptive negative 01/31/19 14:20 Disclamer 01/31/19 14:20 Plasma/Serum Alcohol < 0.01 % (0-0.07) 01/31/19 13:00 Active Medications - Current Medications Current Medications: Generic Name Dose Route Start Last Admin Trade Name Freq PRN Reason Stop Dose Admin Acetaminophen 650 mg 01/31/19 16:40 Tylenol PO Q4H PRN Pain MILD(1-3)/Fever >100.5/MORGAN Albuterol 2.5 mg 01/31/19 16:40 Proventil IH Q4HRT PRN Shortness Of Breath Apixaban 10 mg 02/04/19 22:00 02/06/19 10:47 Eliquis PO 02/11/19 10:01 10 mg Q12HR GULSHAN Administration Protocol Docusate Sodium 100 mg 02/02/19 23:00 02/06/19 10:47 Colace PO 100 mg BID GULSHAN Administration Ceftriaxone Sodium 2 gm in 100 mls @ 200 mls/hr 01/31/19 14:00 02/06/19 10:46 Rocephin/Ns 2 Gm/100 Ml IV 02/06/19 13:59 200 mls/hr Q24HR GULSHAN Administration Protocol Azithromycin 500 mg/ Sodium 250 mls @ 250 mls/hr 01/31/19 14:00 02/06/19 10:45 Chloride IV 250 mls/hr Q24HR GULSHAN Administration Protocol Potassium Phosphate 45 mmol/ 515 mls @ 85 mls/hr 02/06/19 07:55 02/06/19 10:45 Sodium Chloride IV 02/06/19 13:58 85 mls/hr ONCE ONE Administration Methadone HCl 80 mg 02/02/19 10:00 02/06/19 10:46 Dolophine PO 80 mg QDAY GULSHAN Administration Ondansetron HCl 4 mg 01/31/19 16:40 Zofran IV Q8H PRN Nausea And Vomiting Polyethylene Glycol 17 gm 02/02/19 22:31 Miralax 3350 PO QDAY PRN Constipation Sodium Chloride 10 ml 01/31/19 22:00 02/05/19 21:28 Sodium Chloride Flush Syringe 10 Ml IV 10 ml BID GULSHAN Administration Sodium Chloride 10 ml 01/31/19 16:40 Sodium Chloride Flush Syringe 10 Ml IV PRN PRN LINE FLUSH
[2019-02-06] MEDS: SODIUM CHLORIDE FLUSH SYRINGE 10 ML IV SCH (19:00)
== END 2019-02-06 19:35 | disposition home health service (06) | DRG 871 ==
LOC: ED 11:03 → 4A 16:40
PROVIDERS: ADMIT Internal Medicine; ATTEND Internal Medicine
PROC: 3E0234Z Introduction of Serum, Toxoid and Vaccine into Muscle, Percutaneous Approach (ICD-10-PCS; principal; 2019-02-01)
DX: A41.9 Sepsis, unspecified organism (principal); I26.99 Other pulmonary embolism without acute cor pulmonale; J18.1 Lobar pneumonia, unspecified organism; G93.41 Metabolic encephalopathy; N17.0 Acute kidney failure with tubular necrosis; I21.A1 Myocardial infarction type 2; I82.411 Acute embolism and thrombosis of right femoral vein; I82.431 Acute embolism and thrombosis of right popliteal vein; I82.890 Acute embolism and thrombosis of other specified veins; F17.213 Nicotine dependence, cigarettes, with withdrawal; F11.20 Opioid dependence, uncomplicated; E83.52 Hypercalcemia; F17.210 Nicotine dependence, cigarettes, uncomplicated; E66.9 Obesity, unspecified; M89.9 Disorder of bone, unspecified; G89.4 Chronic pain syndrome; D36.9 Benign neoplasm, unspecified site; Z88.5 Allergy status to narcotic agent; Z68.32 Body mass index [BMI] 32.0-32.9, adult; Z23 Encounter for immunization
CPT/HCPCS: 36415; 70450; 71045; 71260; 74177; 78070; 80048; 80053; 80061; 80307; 80320; 81001; 82140; 82306; 82330; 82550; 82570; 82652; 83735; 83880; 83970; 84100; 84154; 84300; 84439; 84443; 84484; 85025; 85610; 87040; 87086; 90471; 90732; 93005; 93010; 93306; 94760; 96361; 96365; 96375; 99406; G0378; A9500; G0009; G0480; J0456; J0696; J1650; J2430; J3475; J7030; J7040; J7050; Q9967

== ENCOUNTER 2019-03-18 14:29 | Emergency (ER) | payer MEDICARE, MEDICAID ==
--- NOTE | 2019-03-18 14:47 | Event Note ---
ED Screening Note Date of service: 03/18/19 Time: 14:42 ED Screening Note: 63 y o male presents post seizure x last night witnessed incident This initial assessment/diagnostic orders/clinical plan/treatment(s) is/are subject to change based on patients health status, clinical progression and re- assessment by fellow clinical providers in the ED. Further treatment and workup at subsequent clinical providers discretion. Patient/guardian urged not to elope from the ED as their condition may be serious if not clinically assessed and managed. Initial orders include: labs protocol
[2019-03-18 15:19] LABS: Basophils % (Auto) 0.9 % (0.0-1.8); Eosinophils # (Auto) 0.1 K/mm3 (0.0-0.4); Eosinophils % (Auto) 1.2 % (0.0-4.3); Hematocrit 41.3 % (35.5-45.6); Hemoglobin 13.8 gm/dl (11.8-15.2); Lymphocytes # (Auto) 2.1 K/mm3 (1.2-5.4); Lymphocytes % (Auto) 38.9 % (13.4-35.0); Mean Corpuscular HGB Conc 34 % (32-34); Mean Corpuscular Volume 95 fl (84-94); Monocytes # (Auto) 0.4 K/mm3 (0.0-0.8); Monocytes % (Auto) 8.1 % (0.0-7.3); Platelet Count 152 K/mm3 (140-440); Red Blood Count 4.36 M/mm3 (3.65-5.03)
[2019-03-18 15:36] LABS: Alanine Aminotransferase 13 units/L (7-56); Albumin 3.6 g/dL (3.9-5); BUN/Creatinine Ratio 7; Blood Urea Nitrogen 8 mg/dL (9-20); Hemolysis Index 54
[2019-03-18 16:07] LABS: Calcium 12.3 mg/dL (8.4-10.2)
[2019-03-18] MEDS ORDERED: NACL 0.9% 1000 ML 2,000 ML IV ONE (17:37)
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
[2019-03-18] MEDS ORDERED: NACL 0.9% 1000 ML ONE (19:15)
[2019-03-18] MEDS ORDERED: NACL 0.9% 1000 ML 1,000 ML IV ONE (19:15)
[2019-03-18] MEDS ORDERED: MAG-OX PO STA (19:15)
[2019-03-18 20:35] VITALS: BP 125/71
[2019-03-18 20:39] LABS: Color,Urine Yellow (Yellow)
[2019-03-18 20:40] LABS: Bilirubin,Urine Negative (Negative); Blood,Urine Small (Negative); Protein,Urine <15 mg/dL mg/dL (Negative)
[2019-03-18 22:04] LABS: Amphetamine Screen,Urine PRESUMPTIVE NEGATIVE; Benzodiazepines Screen,Urine PRESUMPTIVE POSITIVE; Cannabinoid Screen,Urine PRESUMPTIVE NEGATIVE
[2019-03-18 22:05] LABS: Cocaine Screen,Urine PRESUMPTIVE NEGATIVE; Methadone Screen,Urine PRESUMPTIVE POSITIVE; Opiate Screen,Urine PRESUMPTIVE NEGATIVE
[2019-03-19 01:13] LABS: Amorphous Crystals,Urine Few; Bacteria,Urine 1+ /HPF (Negative); Mucus,Urine FEW /HPF
== END 2019-03-18 20:35 | disposition left against medical advice (07) ==
LOC: ED 14:29
DX: R56.9 Unspecified convulsions (principal); E83.52 Hypercalcemia; E83.42 Hypomagnesemia; Z88.5 Allergy status to narcotic agent; M54.9 Dorsalgia, unspecified; G89.29 Other chronic pain; F17.210 Nicotine dependence, cigarettes, uncomplicated; F41.9 Anxiety disorder, unspecified; F43.10 Post-traumatic stress disorder, unspecified; E66.9 Obesity, unspecified; Z68.29 Body mass index [BMI] 29.0-29.9, adult; Z86.711 Personal history of pulmonary embolism; Z86.718 Personal history of other venous thrombosis and embolism; Z79.899 Other long term (current) drug therapy
CPT/HCPCS: 36415; 80053; 80307; 81001; 82550; 83735; 85025; 93005; 93010; 99284; J7030

== ENCOUNTER 2019-03-19 22:12 | Emergency (ER) | payer MEDICARE ==
[2019-03-19] MEDS ORDERED: KEPPRA 1,000 MG/NS 0.75% 100ML 1,000 MG/100 ML BAG IV ONE (22:52)
[2019-03-19] MEDS ORDERED: ATIVAN IV ONE (22:52)
[2019-03-19] MEDS ORDERED: NACL 0.9% 1000 ML 1,000 ML IV ONE (22:53)
[2019-03-19 23:51] LABS: Hematocrit 37.8 % (35.5-45.6); Hemoglobin 12.6 gm/dl (11.8-15.2); Mean Corpuscular HGB Conc 33 % (32-34); Mean Corpuscular Volume 95 fl (84-94); Platelet Count 119 K/mm3 (140-440); Red Blood Count 3.96 M/mm3 (3.65-5.03); Red Cell Distribution Width 15.6 % (13.2-15.2)
[2019-03-20 00:11] LABS: BUN/Creatinine Ratio 7; Blood Urea Nitrogen 7 mg/dL (9-20); Calcium 11.6 mg/dL (8.4-10.2); Hemolysis Index 72
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
--- NOTE | 2019-03-20 01:40 | Cat Scan Report ---
CT head/brain wo con INDICATION: seizure. TECHNIQUE: All CT scans at this location are performed using the following dose modulation technique: Automated exposure control. CONTRAST: None. COMPARISON: None available. FINDINGS: The ventricular system is appropriate in size and configuration without midline shift accou nting for diffuse cerebral atrophy. Mild low density within the periventricular white matter is typic al chronic small vessel ischemic change. Negative for mass, stroke or hemorrhage. Imaged portions of the paranasal sinuses are clear. IMPRESSION: Chronic changes of atrophy and small vessel ischemia. Signer Name: Suresh Franz MD Signed: 03/20/2019 1:35 AM Workstation Name: [id number]
[2019-03-20 01:44] VITALS: BP 125/78
== END 2019-03-20 02:05 | disposition home or self-care (01) ==
LOC: ED 22:12
DX: R56.9 Unspecified convulsions (principal); F43.10 Post-traumatic stress disorder, unspecified; F17.200 Nicotine dependence, unspecified, uncomplicated; Z98.890 Other specified postprocedural states; Z79.899 Other long term (current) drug therapy; Z88.5 Allergy status to narcotic agent
CPT/HCPCS: 36415; 70450; 80048; 82962; 85027; 93005; 93010; 96374; 96375; 99285; J1953; J2060; J7030

== ENCOUNTER 2019-05-20 10:00 | Emergency (ER) | payer OTHER, MEDICARE, MEDICAID ==
[2019-05-20 11:40] VITALS: BP 91/48
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
== END 2019-05-20 15:20 | disposition home or self-care (01) ==
LOC: ED 11:31
DX: S16.1XXA Strain of muscle, fascia and tendon at neck level, initial encounter (principal); M54.5 Low back pain; F43.10 Post-traumatic stress disorder, unspecified; F17.200 Nicotine dependence, unspecified, uncomplicated; Z79.899 Other long term (current) drug therapy; Z88.5 Allergy status to narcotic agent; V87.7XXA Person injured in collision between other specified motor vehicles (traffic), initial encounter; Y93.89 Activity, other specified; Y92.488 Other paved roadways as the place of occurrence of the external cause; Y99.8 Other external cause status
CPT/HCPCS: 70450; 72100; 72125

== ENCOUNTER 2021-04-28 12:29 | Observation (INO) | payer MEDICARE ==
[2021-04-28] MEDS ORDERED: levETIRAcetam 1000 MG/NS 0.75% 1,000 MG/100 ML BAG IV ONE (13:09)
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
[2021-04-28 14:50] LABS: BUN/Creatinine Ratio 6; Blood Urea Nitrogen 6 mg/dL (9-20); Calcium 11.5 mg/dL (8.4-10.2); Hemolysis Index 13
[2021-04-28 14:55] LABS: Basophils # (Auto) 0.1 K/mm3 (0.0-0.1); Basophils % (Auto) 2.2 % (0.0-1.8); Eosinophils % (Auto) 0.1 % (0.0-4.3); Hematocrit 33.2 % (35.5-45.6); Hemoglobin 10.8 gm/dl (11.8-15.2); Lymphocytes # (Auto) 1.1 K/mm3 (1.2-5.4); Mean Corpuscular HGB Conc 33 % (32-34); Mean Corpuscular Volume 97 fl (84-94); Monocytes # (Auto) 0.3 K/mm3 (0.0-0.8); Monocytes % (Auto) 6.1 % (0.0-7.3); Platelet Count 155 K/mm3 (140-440); Red Blood Count 3.43 M/mm3 (3.65-5.03); Red Cell Distribution Width 16.6 % (13.2-15.2)
[2021-04-28] MEDS ORDERED: cefTRIAXone/NS 1 GM/50 ML 1 GM/50 ML BAG IV ONE (15:45)
--- NOTE | 2021-04-28 15:51 | XRay Report ---
CHEST 1 VIEW 04/28/2021 3:42 PM INDICATION / CLINICAL INFORMATION: Hypoxia. COMPARISON: 01/31/2019 FINDINGS: SUPPORT DEVICES: None. HEART / MEDIASTINUM: No significant abnormality. LUNGS / PLEURA: Increased interstitial prominence with pulmonary opacities in bilateral lungs persist . No pneumothorax. ADDITIONAL FINDINGS: No significant additional findings. IMPRESSION: 1. Increased interstitial prominence with pulmonary opacities in bilateral lungs. Left basilar opacit y may be slightly improved however slightly increased opacity in the right upper lung. Signer Name: Michael Keene MD Signed: 04/28/2021 3:47 PM Workstation Name: [id number] [email or web address]
[2021-04-28 16:47] LABS: C-Reactive Protein 0.1 mg/dL (0.00-1.30)
[2021-04-28] MEDS ORDERED: DOCUSATE SODIUM 100 MG CAP PO PRN (20:19)
[2021-04-28] MEDS ORDERED: MORPHINE 2 MG/1 ML INJ IV PRN (20:20)
[2021-04-28] MEDS ORDERED: ONDANSETRON 4 MG/2 ML INJ IV PRN (20:20)
[2021-04-28] MEDS ORDERED: ACETAMINOPHEN 325 MG TAB PO PRN (20:20)
[2021-04-28] MEDS ORDERED: HYDROmorphone 1 MG/1 ML INJ IV PRN (20:20)
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
[2021-04-28] MEDS ORDERED: SODIUM CHLORIDE 0.9% 1000 ML 1,000 ML IV SCH (20:30)
[2021-04-28] MEDS ORDERED: HEPARIN 5,000 UNIT/1 ML VIAL SUB-Q SCH (22:00)
[2021-04-28] MEDS ORDERED: NON-FORMULARY EACH (Apixaban 5 MG Tablet) PO SCH (22:00)
[2021-04-28] MEDS ORDERED: PHOS-NAK POWDER PACKET PO SCH (22:00)
[2021-04-28] MEDS: FAMOTIDINE 20 MG/2 ML INJ IV SCH (23:20)
[2021-04-28] MEDS: FUROSEMIDE 20 MG TAB PO SCH (23:20)
[2021-04-28] MEDS: APIXABAN 5 MG TAB PO SCH (23:20)
[2021-04-28] MEDS: levETIRAcetam 750 MG in DEXTROSE 5% IN WATER 100 ML IV SCH ×2 (23:20→23:21)
[2021-04-29 04:50] VITALS: BP 119/72
[2021-04-29 06:57] LABS: Basophils % (Auto) 0.7 % (0.0-1.8); Eosinophils % (Auto) 0.3 % (0.0-4.3); Hematocrit 29.8 % (35.5-45.6); Hemoglobin 9.8 gm/dl (11.8-15.2); Lymphocytes # (Auto) 1.8 K/mm3 (1.2-5.4); Lymphocytes % (Auto) 35.2 % (13.4-35.0); Mean Corpuscular HGB Conc 33 % (32-34); Mean Corpuscular Volume 96 fl (84-94); Monocytes # (Auto) 0.4 K/mm3 (0.0-0.8); Monocytes % (Auto) 7.2 % (0.0-7.3); Platelet Count 153 K/mm3 (140-440); Red Blood Count 3.12 M/mm3 (3.65-5.03); Red Cell Distribution Width 16.4 % (13.2-15.2)
[2021-04-29 07:20] LABS: Alanine Aminotransferase 6 units/L (7-56); Albumin 2.6 g/dL (3.9-5); BUN/Creatinine Ratio 7; Blood Urea Nitrogen 7 mg/dL (9-20); Calcium 11.1 mg/dL (8.4-10.2); Hemolysis Index 2
--- NOTE | 2021-04-29 08:16 | Discharge Summary ---
Providers - Providers Date of Admission: 04/28/21 15:46 Attending physician: BOBO NEWBERRY 04/28/21 19:33 Physical Therapy Evaluation and Treat [CONS] Routine Comment: Reason For Exam: need d/c plan recommendations ANANTH ALMONTE 04/28/21 20:20 Consult to Physician [CONS] Routine Comment: Consulting Provider: [facility] Physician Instructions: Reason For Exam: Seizure disorder Primary care physician: BIOLOGICAL SCIENCE AIDE Hospitalization Condition: Fair Exam - Constitutional Vitals: Temp Pulse Resp BP Pulse Ox 98.3 F 68 18 119/72 94 04/29/21 04:41 04/29/21 04:41 04/29/21 04:41 04/29/21 04:41 04/29/21 04:41 Plan Follow up with: PRIMARY CAREMD [Primary Care Provider] - 3-5 Days Prescriptions: levETIRAcetam [Keppra TAB] 500 mg PO BID #60 tablet levETIRAcetam [Keppra TAB] 500 mg PO BID #60 tablet
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
[2021-04-29] MEDS: FUROSEMIDE 20 MG TAB PO SCH (09:47)
[2021-04-29] MEDS: APIXABAN 5 MG TAB PO SCH (09:47)
[2021-04-29] MEDS: levETIRAcetam 750 MG in DEXTROSE 5% IN WATER 100 ML IV SCH (09:50)
[2021-04-29] MEDS: FAMOTIDINE 20 MG/2 ML INJ IV SCH (09:56)
[2021-04-29] MEDS ORDERED: MAGNESIUM OXIDE 400 MG TAB PO SCH (10:00)
[2021-04-29] MEDS ORDERED: METHADONE 10 MG TAB PO SCH (10:00)
[2021-04-29] MEDS ORDERED: METHADONE PO SCH (10:00)
== END 2021-04-29 12:15 | disposition home or self-care (01) ==
LOC: ED 12:29 → 3A 15:46
PROVIDERS: ADMIT Internal Medicine; ATTEND Internal Medicine
DX: G40.909 Epilepsy, unspecified, not intractable, without status epilepticus (principal); Z20.822 Contact with and (suspected) exposure to COVID-19; I11.0 Hypertensive heart disease with heart failure; I50.9 Heart failure, unspecified; M62.838 Other muscle spasm; F43.10 Post-traumatic stress disorder, unspecified; M54.9 Dorsalgia, unspecified; F17.200 Nicotine dependence, unspecified, uncomplicated; R09.02 Hypoxemia; Z79.899 Other long term (current) drug therapy; Z79.01 Long term (current) use of anticoagulants; Z98.890 Other specified postprocedural states
CPT/HCPCS: 36415; 71045; 80048; 80053; 82728; 82947; 83615; 83735; 84145; 85025; 85379; 86140; 87040; 96365; 96366; 96367; 96375; 96376; 99284; G0378; J0696; J1953; U0003

== ENCOUNTER 2021-05-13 07:17 | Emergency (ER) | payer MEDICARE ==
[2021-05-13 07:58] VITALS: BP 151/91
== END 2021-05-13 08:30 | disposition left against medical advice (07) ==
LOC: ED 07:17
DX: Z13.30 Encounter for screening examination for mental health and behavioral disorders, unspecified (principal); Z53.21 Procedure and treatment not carried out due to patient leaving prior to being seen by health care provider

== ENCOUNTER 2021-09-10 16:50 | Emergency (ER) | payer MEDICARE ==
[2021-09-10] MEDS ORDERED: levETIRAcetam 1000 MG/NS 0.75% 1,000 MG/100 ML BAG IV ONE (17:29)
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
[2021-09-10 18:09] LABS: Basophils % (Auto) 0.8 % (0.0-1.8); Eosinophils % (Auto) 0.9 % (0.0-4.3); Hematocrit 33.3 % (35.5-45.6); Hemoglobin 11.5 gm/dl (11.8-15.2); Lymphocytes # (Auto) 1.3 K/mm3 (1.2-5.4); Lymphocytes % (Auto) 24.1 % (13.4-35.0); Mean Corpuscular HGB Conc 34 % (32-34); Mean Corpuscular Volume 94 fl (84-94); Monocytes # (Auto) 0.5 K/mm3 (0.0-0.8); Monocytes % (Auto) 9.5 % (0.0-7.3); Platelet Count 122 K/mm3 (140-440); Red Blood Count 3.56 M/mm3 (3.65-5.03); Red Cell Distribution Width 14.8 % (13.2-15.2)
[2021-09-10 18:32] LABS: Alanine Aminotransferase 21 units/L (7-56); Albumin 3.7 g/dL (3.9-5); BUN/Creatinine Ratio 13; Bilirubin,Direct < 0.2 mg/dL (0-0.2); Blood Urea Nitrogen 16 mg/dL (9-20); Calcium 11.9 mg/dL (8.4-10.2); Hemolysis Index 12
[2021-09-10 22:49] VITALS: BP 137/83
== END 2021-09-10 22:49 | disposition home or self-care (01) ==
LOC: ED 16:50
DX: G40.909 Epilepsy, unspecified, not intractable, without status epilepticus (principal); F17.200 Nicotine dependence, unspecified, uncomplicated; F10.20 Alcohol dependence, uncomplicated; Z88.5 Allergy status to narcotic agent
CPT/HCPCS: 36415; 80048; 80076; 85025; 96374; 99284; J1953

== ENCOUNTER 2021-12-21 13:36 | Inpatient (IN) | payer MEDICAID, MEDICARE ==
[2021-12-21] MEDS ORDERED: NALOXONE 0.4 MG/1 ML INJ ONE (13:51)
[2021-12-21] MEDS ORDERED: NALOXONE 0.4 MG/1 ML INJ IV ONE (13:51)
[2021-12-21] MEDS ORDERED: ONDANSETRON 4 MG/2 ML INJ IV ONE (13:54)
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
[2021-12-21 14:39] LABS: Basophils # (Auto) 0.1 K/mm3 (0.0-0.1); Basophils % (Auto) 0.7 % (0.0-1.8); Eosinophils # (Auto) 0.1 K/mm3 (0.0-0.4); Eosinophils % (Auto) 1.1 % (0.0-4.3); Hematocrit 41.5 % (35.5-45.6); Hemoglobin 13.6 gm/dl (11.8-15.2); Lymphocytes # (Auto) 2.4 K/mm3 (1.2-5.4); Lymphocytes % (Auto) 30.1 % (13.4-35.0); Mean Corpuscular HGB Conc 33 % (32-34); Mean Corpuscular Volume 91 fl (84-94); Monocytes # (Auto) 0.5 K/mm3 (0.0-0.8); Monocytes % (Auto) 5.9 % (0.0-7.3); Platelet Count 149 K/mm3 (140-440); Red Blood Count 4.57 M/mm3 (3.65-5.03); Red Cell Distribution Width 13.7 % (13.2-15.2)
[2021-12-21 14:51] LABS: INR 0.87 (0.87-1.13)
--- NOTE | 2021-12-21 15:06 | XRay Report ---
CHEST 1 VIEW 12/21/2021 2:37 PM INDICATION / CLINICAL INFORMATION: Overdose. COMPARISON: 04/28/2021 FINDINGS: SUPPORT DEVICES: None. HEART / MEDIASTINUM: No significant abnormality. LUNGS / PLEURA: No significant pulmonary or pleural abnormality. No pneumothorax. ADDITIONAL FINDINGS: No significant additional findings. IMPRESSION: 1. No acute findings. Signer Name: Vipul Mcdonald MD Signed: 12/21/2021 3:02 PM Workstation Name: [id number]
[2021-12-21 15:37] LABS: Alanine Aminotransferase 18 units/L (7-56); Albumin 4.4 g/dL (3.9-5); BUN/Creatinine Ratio 13; Blood Urea Nitrogen 18 mg/dL (9-20); Hemolysis Index 8
[2021-12-21 15:40] LABS: Calcium > 13.0 mg/dL (8.4-10.2)
[2021-12-21] MEDS ORDERED: SODIUM CHLORIDE 0.9% 1000 ML 1,000 ML IV ONE (15:41)
--- NOTE | 2021-12-21 15:43 | Cat Scan Report ---
CT BRAIN: 12/21/2021 INDICATION / CLINICAL INFORMATION: Overdose. COMPARISON: CT brain 05/20/2019 FINDINGS: BRAIN/INTRACRANIAL STRUCTURES: Unenhanced CT images of the brain demonstrate no evidence of acute abn ormality. Ventricles and sulci are prominent in size, consistent with prominent diffuse cerebral atrophy. There is no CT evidence of acute ischemic injury, hemorrhage, or mass. There are no abnormal extra-ax ial fluid collections. Mucosal thickening is present in the right nasal cavity. EXTRACRANIAL STRUCTURES: Unremarkable. IMPRESSION: No acute intracranial abnormality. Diffuse cerebral atrophy. Intracranial appearance is not changed when compared to the prior exam. All CT scans at this location are performed using dose reduction to ALARA by means of automated expos ure control. 12/21/2021 Signer Name: Brodie Nunez MD Signed: 12/21/2021 3:39 PM Workstation Name: [id number]
[2021-12-21] MEDS ORDERED: ACETAMINOPHEN 325 MG TAB PO PRN (21:24)
[2021-12-21] MEDS ORDERED: oxyCODONE /ACETAMINOPHEN 5-325MG TAB PO PRN (21:24)
[2021-12-21] MEDS ORDERED: METOCLOPRAMIDE 10 MG/2 ML INJ IV PRN (21:24)
[2021-12-21] MEDS ORDERED: ONDANSETRON 4 MG/2 ML INJ IV PRN (21:24)
[2021-12-21] MEDS ORDERED: MORPHINE 2 MG/1 ML INJ IV PRN (21:24)
[2021-12-21] MEDS ORDERED: PAMIDRONATE DISODIUM 60 MG in SODIUM CHLORIDE 0.9% 1000 ML 1,000 ML IV ONE (21:32)
[2021-12-21] MEDS ORDERED: HEPARIN 5,000 UNIT/1 ML VIAL SUB-Q SCH (22:00)
[2021-12-21 22:50] LABS: Mucus,Urine FEW /HPF
[2021-12-21] MEDS: SODIUM CHLORIDE 0.9% 1000 ML 1,000 ML IV SCH (22:50)
[2021-12-21] MEDS: FAMOTIDINE 20 MG TAB PO SCH (22:50)
[2021-12-21 22:52] LABS: Bilirubin,Urine Negative (Negative); Color,Urine Yellow (Yellow)
[2021-12-21 22:53] LABS: Blood,Urine Negative (Negative); Protein,Urine <15 mg/dL mg/dL (Negative); Urobilinogen,Urine < 2.0 mg/dL (<2.0)
[2021-12-21 23:00] LABS: Amphetamine Screen,Urine PRESUMPTIVE NEGATIVE; Benzodiazepines Screen,Urine PRESUMPTIVE NEGATIVE; Cannabinoid Screen,Urine PRESUMPTIVE NEGATIVE; Cocaine Screen,Urine PRESUMPTIVE NEGATIVE; Methadone Screen,Urine PRESUMPTIVE POSITIVE; Opiate Screen,Urine PRESUMPTIVE NEGATIVE
[2021-12-22 05:35] LABS: Basophils % (Auto) 0.6 % (0.0-1.8); Eosinophils % (Auto) 0.3 % (0.0-4.3); Hematocrit 37.7 % (35.5-45.6); Hemoglobin 12.6 gm/dl (11.8-15.2); Lymphocytes # (Auto) 2.3 K/mm3 (1.2-5.4); Lymphocytes % (Auto) 31.9 % (13.4-35.0); Mean Corpuscular HGB Conc 33 % (32-34); Mean Corpuscular Volume 90 fl (84-94); Monocytes # (Auto) 0.6 K/mm3 (0.0-0.8); Monocytes % (Auto) 8.7 % (0.0-7.3); Platelet Count 131 K/mm3 (140-440); Red Blood Count 4.19 M/mm3 (3.65-5.03); Red Cell Distribution Width 13.8 % (13.2-15.2)
[2021-12-22 06:00] LABS: Alanine Aminotransferase 18 units/L (7-56); Albumin 3.6 g/dL (3.9-5); BUN/Creatinine Ratio 14; Blood Urea Nitrogen 15 mg/dL (9-20); Hemolysis Index 5
[2021-12-22 06:13] LABS: Calcium 12.5 mg/dL (8.4-10.2)
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
--- NOTE | 2021-12-22 08:56 | Electrocardiograph Report ---
[facility] Test Date: 2021-12-21 Test Time: 13:55:36 Pat Name: DAVID PERRY Department: Room: A387 1 Gender: M Rn Urology: [id number] : 1955 Requested By: HARPER MACK Order Number: [id number] Reading MD: Gerald Mathis Measurements Intervals [place] Rate: 83 P: 78 FL: 177 QRS: 47 QRSD: 88 T: 86 QT: 349 QTc: 410 Interpretive Statements Sinus rhythm No previous ECG available for comparison Electronically Signed On 12-22-2021 8:56:07 EDT by Gerald Mathis
[2021-12-22] MEDS ORDERED: FUROSEMIDE 20 MG TAB PO SCH (09:00)
[2021-12-22] MEDS: FAMOTIDINE 20 MG TAB PO SCH ×2 (09:05→22:30)
[2021-12-22] MEDS: levETIRAcetam 500 MG TAB PO SCH ×2 (09:06→22:30)
[2021-12-22] MEDS: MAGNESIUM OXIDE 400 MG TAB PO SCH (09:06)
[2021-12-22] MEDS ORDERED: NON-FORMULARY EACH (Apixaban 5 MG Tablet) PO SCH (10:00)
[2021-12-22 11:15] LABS: Hematocrit 36.9 % (35.5-45.6); Hemoglobin 12.3 gm/dl (11.8-15.2); Mean Corpuscular HGB Conc 33 % (32-34); Mean Corpuscular Volume 91 fl (84-94); Platelet Count 122 K/mm3 (140-440); Red Blood Count 4.07 M/mm3 (3.65-5.03); Red Cell Distribution Width 13.7 % (13.2-15.2)
[2021-12-22 11:31] LABS: INR 0.98 (0.87-1.13)
[2021-12-22 11:32] LABS: Partial Thromboplastin Time 30.1 Sec. (24.2-36.6)
--- NOTE | 2021-12-22 11:54 | Progress Note ---
Assessment and Plan Assessment and plan: #Hypercalcemia -chronic, baseline calcium ~11; Ca 12.5 today -continue IV fluids, s/p pamidronate 60mg x1 -acute rise likely 2/2 to volume delpletion -will recheck calcium after pamidronate -PTH intact level ordered #Volume depletion -continue IVFs for now #History of substance abuse #methadone dependence #Suspected drug overdose -patient with methadone on UDS, improvement in mental status s/p narcan -continue methadone at home doses #Acute metabolic encephalopathy-resolved -CT head negative for acute findings -likely secondary to taking too much methadone #Nicotine dependence Smoking cessation counseling done #history of anticoagulation -continue eliquis at home dose #History of congestive heart failure, diastolic -EF 60% on TTE today -patient with chronic lower extremity edema -will hold lasix at this time due to volume depletion, will start reduced dose at discharge -not in acute exacerbation #Seizure disorder -continue keppra at home dose #Advance care planning -Disease education conducted, care plan discussed, diagnosis discussed, prognosis discussed. Patient is full code. Patient acknowledges understanding and agreement with care plan. +30 minutes. History Interval history: No acute events overnight. Patient remembers details of fall. Reports taking methadone 80 mg daily. He denies taking more than his usual dose. He has no complaints at this time. Hospitalist Physical - Physical exam Narrative exam: GENERAL: Well-developed well-nourished. In no acute distress. HEENT: Poor dentition. NECK: Supple. CHEST/LUNGS: CTAB on room air HEART/CARDIOVASCULAR: RRR. No murmur, rubs or gallops appreciated. ABDOMEN: +BS. NT/ND. SKIN: Dry skin. NEURO: No focal motor deficit. Follows all commands. MUSCULOSKELETAL: No joint effusion EXTREMITIES: BLE with tree barking and trace pedal edema. PSYCH: Cooperative. - Constitutional Vitals: Temp Pulse Resp BP Pulse Ox 97.2 F L 52 L 19 165/83 99 12/22/21 05:36 12/22/21 05:36 12/22/21 05:36 12/22/21 05:36 12/22/21 05:36 General appearance: Present: no acute distress, well-nourished HEART Score - HEART Score Troponin: Troponin T < 0.010 ng/mL (0.00-0.029) 12/21/21 14:14 Results - Labs CBC & Chem 7: 12/22/21 10:29 12/22/21 10:29 Labs: Laboratory Last Values WBC 6.4 K/mm3 (4.5-11.0) 12/22/21 10:29 RBC 4.07 M/mm3 (3.65-5.03) 12/22/21 10:29 Hgb 12.3 gm/dl (11.8-15.2) 12/22/21 10:29 Hct 36.9 % (35.5-45.6) 12/22/21 10:29 MCV 91 fl (84-94) 12/22/21 10:29 MCH 30 pg (28-32) 12/22/21 10:29 MCHC 33 % (32-34) 12/22/21 10:29 RDW 13.7 % (13.2-15.2) 12/22/21 10:29 Plt Count 122 K/mm3 (140-440) L 12/22/21 10:29 Lymph % (Auto) 31.9 % (13.4-35.0) 12/22/21 05:02 [place] % (Auto) 8.7 % (0.0-7.3) H 12/22/21 05:02 Eos % (Auto) 0.3 % (0.0-4.3) 12/22/21 05:02 Baso % (Auto) 0.6 % (0.0-1.8) 12/22/21 05:02 Lymph # (Auto) 2.3 K/mm3 (1.2-5.4) 12/22/21 05:02 [place] # (Auto) 0.6 K/mm3 (0.0-0.8) 12/22/21 05:02 Eos # (Auto) 0.0 K/mm3 (0.0-0.4) 12/22/21 05:02 Baso # (Auto) 0.0 K/mm3 (0.0-0.1) 12/22/21 05:02 Seg Neutrophils % 58.5 % (40.0-70.0) 12/22/21 05:02 Seg Neutrophils # 4.2 K/mm3 (1.8-7.7) 12/22/21 05:02 PT 14.1 Sec. (12.2-14.9) 12/22/21 10:29 INR 0.98 (0.87-1.13) 12/22/21 10:29 APTT 30.1 Sec. (24.2-36.6) 12/22/21 10:29 Sodium 138 mmol/L (137-145) 12/22/21 05:02 Potassium 4.2 mmol/L (3.6-5.0) 12/22/21 05:02 Chloride 104.7 mmol/L (98-107) 12/22/21 05:02 Carbon Dioxide 25 mmol/L (22-30) 12/22/21 05:02 Anion Gap 13 mmol/L 12/22/21 05:02 BUN 15 mg/dL (9-20) 12/22/21 05:02 Creatinine 1.2 mg/dL (0.8-1.3) 12/22/21 10:29 Estimated GFR > 60 ml/min 12/22/21 10:29 BUN/Creatinine Ratio 14 % 12/22/21 05:02 Glucose 75 mg/dL (75-100) 12/22/21 05:02 Calcium 12.5 mg/dL (8.4-10.2) H* 12/22/21 05:02 Magnesium 1.90 mg/dL (1.7-2.3) 12/21/21 14:14 Total Bilirubin 0.70 mg/dL (0.1-1.2) 12/22/21 05:02 AST 29 units/L (5-40) 12/22/21 05:02 ALT 18 units/L (7-56) 12/22/21 05:02 Alkaline Phosphatase 162 units/L (35-129) H 12/22/21 05:02 Troponin T < 0.010 ng/mL (0.00-0.029) 12/21/21 14:14 NT-Pro-B Natriuret Pep 209.4 pg/mL (0-900) 12/21/21 14:14 Total Protein 7.3 g/dL (6.3-8.2) 12/22/21 05:02 Albumin 3.6 g/dL (3.9-5) L 12/22/21 05:02 Albumin/Globulin Ratio 1.0 % 12/22/21 05:02 PTH Intact 556.1 pg/mL (15-65) H 12/22/21 10:29 Urine Color Yellow (Yellow) 12/21/21 22: Urine Turbidity Clear (Clear) 12/21/21 22: Urine pH 8.0 (5.0-7.0) H 12/21/21 22: Ur Specific [place] 1.005 (1.003-1.030) 12/21/21 22: Urine Protein <15 mg/dl mg/dL (Negative) 12/21/21: Urine Glucose (UA) Negative mg/dL (Negative) 12/21/21 22: Urine Ketones Negative mg/dL (Negative) 12/21/21 22: Urine Blood Negative (Negative) 12/21/21: Urine Nitrite Negative (Negative) 12/21/21 Ur Reducing Substances Not Reportable 12/21/21: Urine Bilirubin Negative (Negative) 12/21/21: Urine Ictotest Not Reportable 12/21/21: Urine Urobilinogen < 2.0 mg/dL (<2.0) 12/21/21: Ur Leukocyte Esterase Negative (Negative) 12/21/21 22: Urine WBC (Auto) 1.0 /HPF (0.0-6.0) 12/21/21 22: Urine RBC (Auto) 2.0 /HPF (0.0-6.0) 12/21/21: U Epithel Cells (Auto) < 1.0 /HPF (0-13.0) 12/21/21: Urine Mucus Few /HPF 12/21/21: Salicylates < 0.3 mg/dL (2.8-20.0) L 12/21/21 14:14 Urine Opiates Screen Presumptive negative 12/21/21 22: Urine Methadone Screen Presumptive positive 12/21/21: Acetaminophen 5.0 ug/mL (10.0-30.0) L 12/21/21 14:14 Ur Barbiturates Screen Presumptive negative 12/21/21: Ur Phencyclidine Scrn Presumptive negative 12/21/21 22: Ur Amphetamines Screen Presumptive negative 12/21/21: U Benzodiazepines Scrn Presumptive negative 12/21/21 22: Urine Cocaine Screen Presumptive negative 12/21/21 22:27 U Marijuana (THC) Screen Presumptive negative 12/21/21 22:27 Drugs of Abuse Note Disclamer 12/21/21 22:27 Plasma/Serum Alcohol < 0.01 % (0-0.07) 12/21/21 14:14 Rueda/IV: Voiding Method Urinal Active Medications - Current Medications Current Medications: Generic Name Dose Route Start Last Admin Trade Name Freq PRN Reason Stop Dose Admin Acetaminophen 650 mg 12/21/21 21:24 Acetaminophen 325 Mg Tab PO Q4H PRN Pain MILD(1-3)/Fever >100.5/MORGAN Apixaban 5 mg 12/22/21 10:00 Apixaban 5 Mg Tab PO Q12HR [facility] Protocol Famotidine 20 mg 12/21/21 22:00 12/22/21 09:05 Famotidine 20 Mg Tab PO 20 mg BID [facility]AN Administration Furosemide 20 mg 12/22/21 09:00 12/22/21 09:07 Furosemide 20 Mg Tab PO 20 mg 0600,1800 GULSHAN Administration Sodium Chloride 1,000 mls @ 125 mls/hr 12/21/21 21:30 12/21/21 22:50 Nacl 0.9% 1000 Ml IV 125 mls/hr DIRECT [facility] Administration Levetiracetam 500 mg 12/22/21 10:00 12/22/21 09:06 Levetiracetam 500 Mg Tab PO 500 mg BID [facility] Administration Magnesium Oxide 400 mg 12/22/21 10:00 12/22/21 09:06 Magnesium Oxide 400 Mg Tab PO 400 mg QDAY GULSHAN Administration Methadone HCl 80 mg 12/22/21 14:00 Methadone 10 Mg Tab PO QDAY [facility] Methocarbamol 500 mg 12/22/21 09:00 Methocarbamol 500 Mg Tab PO Q6H PRN Muscle Spasm Metoclopramide HCl 10 mg 12/21/21 21:24 Metoclopramide 10 Mg/2 Ml Inj IV Q6H PRN Nausea And Vomiting Morphine Sulfate 2 mg 12/21/21 21:24 Morphine 2 Mg/1 Ml Inj IV Q4H PRN Pain, Moderate (4-6) Ondansetron HCl 4 mg 12/21/21 21:24 Ondansetron 4 Mg/2 Ml Inj IV Q8H PRN Nausea And Vomiting Oxycodone/Acetaminophen 1 tab 12/21/21 21:24 Oxycodone /Acetaminophen 5-325mg Tab PO Q6H PRN Pain, Moderate (4-6) Sodium Chloride 10 ml 12/21/21 22:00 12/22/21 09:07 Sodium Chloride 0.9% 10 Ml Flush Syringe IV 10 ml BID [facility] Administration Sodium Chloride 10 ml 12/21/21 21:24 Sodium Chloride 0.9% 10 Ml Flush Syringe IV PRN PRN LINE FLUSH
[2021-12-22] MEDS ORDERED: NALOXONE 2 MG/2 ML INJ IV PRN (12:14)
[2021-12-22] MEDS: METHADONE 10 MG TAB PO SCH (13:26)
[2021-12-22] MEDS: APIXABAN 5 MG TAB PO SCH ×2 (13:26→22:30)
[2021-12-22] MEDS: SODIUM CHLORIDE 0.9% 1000 ML 1,000 ML IV SCH (22:31)
[2021-12-23 05:27] LABS: Albumin 3.2 g/dL (3.9-5); Calcium 11.9 mg/dL (8.4-10.2)
--- NOTE | 2021-12-23 07:56 | Discharge Summary ---
Providers - Providers Date of Admission: 12/21/21 21:24 Date of discharge: 12/23/21 Attending physician: KANIKA ROGERS MD Primary care physician: CHOPPER GUN OPERATOR Hospitalization Reason for admission: suspected overdose, hypercalcemia Condition: Stable Hospital course: 66-year-old male with history of methadone use secondary to previous opiate abuse, seizure disorder and CHF who presented to the emergency department with altered mental status. Patient clinically improved after receiving Narcan. He was incidentally found to have a calcium level greater than 13. He received IV fluids and 1 dose of pamidronate. PTH level was 556.1. Calcium level dropped to 11.9. Once clinically stable he was discharged home with and advised to follow-up with primary care doctor for primary hyperparathyroidism evaluation. Disposition: 30 STILL A PATIENT Final Discharge Diagnosis (Prints w/discharge instructions): Primary hyperparathyroidism. Hypercalcemia. Seizure disorder. Acute metabolic encephalopathy. Nicotine dependence. History anticoagulation. Chronic diastolic heart failure. Methadone dependence. Suspected drug overdose. History of substance abuse. Volume depletion Time spent for discharge: 30 minutes Core Measure Documentation - Palliative Care Palliative Care/ Comfort Measures: Not Applicable - Core Measures Any of the following diagnoses?: history only Exam - Physical Exam Narrative exam: GENERAL: Well-developed well-nourished. In no acute distress. HEENT: Poor dentition. NECK: Supple. CHEST/LUNGS: CTAB on room air HEART/CARDIOVASCULAR: RRR. No murmur, rubs or gallops appreciated. ABDOMEN: +BS. NT/ND. SKIN: Dry skin. NEURO: No focal motor deficit. Follows all commands. MUSCULOSKELETAL: No joint effusion EXTREMITIES: BLE with tree barking and trace pedal edema. PSYCH: Cooperative. - Constitutional Vitals: Temp Pulse Resp BP Pulse Ox 97.2 F L 54 L 18 101/62 95 12/23/21 01:14 12/22/21 22:37 12/23/21 01:14 12/23/21 01:14 12/23/21 01:14 Plan Care Plan Goals: Please follow-up with your primary care provider for further evaluation of your chronic high calcium levels. Please decrease your furosemide dose to 1 tablet once per day. Please resume taking all your medications as prescribed. Assessment: Patient is a 66-year-old male with history of seizure disorder, heart failure, and methadone dependence who presented to the emergency department with altered mental status. Per EMS after Narcan patient became responsive. He was incidentally found to have a calcium greater than 13. He was started on IV fluids and given 1 dose of pamidronate. Intact PTH level was 556.1. After treatment his calcium level improved to 11.9. Once clinically stable, patient was discharged home with and advised to follow-up with his primary care doctor for further work-up of primary hyperparathyroidism. Follow up with: PRIMARY CARE, [Primary Care Provider] - 3-5 Days Prescriptions: Furosemide [Lasix TAB] 20 mg PO QDAY 30 Days #30 tablet
[2021-12-23] MEDS: METHADONE 10 MG TAB PO SCH (09:34)
[2021-12-23] MEDS: FAMOTIDINE 20 MG TAB PO SCH (09:35)
[2021-12-23] MEDS: MAGNESIUM OXIDE 400 MG TAB PO SCH (09:35)
[2021-12-23] MEDS: APIXABAN 5 MG TAB PO SCH (09:35)
[2021-12-23] MEDS: levETIRAcetam 500 MG TAB PO SCH (09:39)
[2021-12-23 11:59] VITALS: BP 118/70
--- NOTE | 2021-12-24 14:03 | Electrocardiograph Report ---
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
--- NOTE | 2021-12-24 14:03 | Electrocardiograph Report ---
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
== END 2021-12-23 14:30 | disposition home or self-care (01) | DRG 917 ==
LOC: ED 13:36 → 3A 21:24
PROVIDERS: ADMIT Internal Medicine; ATTEND Student in an Organized Health Care Education/Training Program
DX: T40.3X1A Poisoning by methadone, accidental (unintentional), initial encounter (principal); G93.41 Metabolic encephalopathy; I50.42 Chronic combined systolic (congestive) and diastolic (congestive) heart failure; E83.52 Hypercalcemia; Z20.822 Contact with and (suspected) exposure to COVID-19; G40.909 Epilepsy, unspecified, not intractable, without status epilepticus; F17.210 Nicotine dependence, cigarettes, uncomplicated; E86.9 Volume depletion, unspecified; E21.0 Primary hyperparathyroidism; R45.851 Suicidal ideations; F43.10 Post-traumatic stress disorder, unspecified; Z79.899 Other long term (current) drug therapy; Z88.6 Allergy status to analgesic agent; Z86.718 Personal history of other venous thrombosis and embolism; Z79.01 Long term (current) use of anticoagulants; Z71.6 Tobacco abuse counseling; Y92.89 Other specified places as the place of occurrence of the external cause
CPT/HCPCS: 36415; 70450; 71045; 80053; 80307; 80320; 81001; 82565; 83735; 83880; 83970; 84484; 85025; 85027; 85610; 85730; 93005; 93306; G0378; C8929; G0480; J1644; J2310; J2430; J7030

== ENCOUNTER 2022-02-05 10:29 | Emergency (ER) | payer MEDICARE ==
[2022-02-05] MEDS ORDERED: SODIUM CHLORIDE 0.9% 1000 ML 1,000 ML IV ONE ×2 (11:08→14:17)
--- NOTE | 2022-02-05 13:19 | XRay Report ---
CHEST 1 VIEW 02/05/2022 1:02 PM INDICATION / CLINICAL INFORMATION: Weakness. COMPARISON: 12/21/2021 FINDINGS: SUPPORT DEVICES: None. HEART / MEDIASTINUM: No significant abnormality. LUNGS / PLEURA: Patchy areas mild increased interstitial process in densities are seen in bilateral l ungs No pneumothorax. ADDITIONAL FINDINGS: No significant additional findings. IMPRESSION: 1. Mild increased interstitial prominence with densities in bilateral lungs. Signer Name: Michael Keene MD Signed: 02/05/2022 1:14 PM Workstation Name: [id number]
[2022-02-05 13:30] LABS: Hemoglobin 12.9 gm/dl (11.8-15.2); Mean Corpuscular HGB Conc 33 % (32-34); Mean Corpuscular Volume 91 fl (84-94); Platelet Count 119 K/mm3 (140-440); Red Blood Count 4.29 M/mm3 (3.65-5.03); Red Cell Distribution Width 15.2 % (13.2-15.2)
[2022-02-05 13:41] LABS: INR 0.94 (0.87-1.13); Partial Thromboplastin Time 32.1 Sec. (24.2-36.6)
--- NOTE | 2022-02-05 13:47 | Cat Scan Report ---
CT head/brain wo con, CT facial bones wo con INDICATION: Weakness. TECHNIQUE: CT head and CT face. All CT scans at this location are performed using CT dose reduction f or ALARA by means of automated exposure control. COMPARISON: December 21, 2021 CT head. FINDINGS: Head: Small right frontal scalp hematoma. Intracranial: Garcia-white matter differentiation is maintained. No intracranial hemorrhage. No extra a xial collection.. No hydrocephalus. No herniation. Calvarium: No acute fracture. Face: Facial bones:Facial bones are intact without fracture. Mandibular condyles are well-seated within the glenoid fossa of the temporal mandibular joint. Sinuses: Paranasal sinuses and mastoid air cells are essentially clear. Orbits: Globes are intact. Additional findings:No other significant abnormality. IMPRESSION: 1. No acute intracranial abnormality. 2. No facial bone fracture. Signer Name: Jorge A Rogers MD Signed: 02/05/2022 1:42 PM Workstation Name: [employer]
[2022-02-05 13:48] LABS: Calcium 11.7 mg/dL (8.4-10.2)
[2022-02-05 13:49] LABS: Albumin 3.9 g/dL (3.9-5)
--- NOTE | 2022-02-05 13:50 | Cat Scan Report ---
CT cervical spine wo con INDICATION: Weakness. TECHNIQUE: Axial CT images of the cervical spine were obtained. Sagittal and coronal reformatted images were pro duced. All CT scans at this location are performed using CT dose reduction for ALARA by means of auto mated exposure control. COMPARISON: 05/20/2019 FINDINGS: ALIGNMENT: Mild leftward curvature of the cervical spine. VERTEBRAE: Osseous demineralization. Benign C3 hemangioma. No suspicious lesion. No fracture. Vertebr al body heights are preserved. C1 and C2 are congruent. SPONDYLOSIS: Spondylosis most pronounced at C3-C4 in which there is left greater than right foraminal narrowing. SOFT TISSUES: No significant soft tissue abnormality. ADDITIONAL FINDINGS: No significant additional findings. IMPRESSION: 1. No fracture of the cervical spine. Signer Name: Jorge A Rogers MD Signed: 02/05/2022 1:45 PM Workstation Name: [facility]
[2022-02-05] MEDS ORDERED: SODIUM CHLORIDE 0.9% 1000 ML 1,000 ML ONE (14:15)
[2022-02-05] MEDS ORDERED: cefTRIAXone/NS 1 GM/50 ML 1 GM/50 ML BAG IV ONE (14:17)
[2022-02-05] MEDS ORDERED: NALOXONE 0.4 MG/1 ML INJ ONE (15:29)
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
[2022-02-05 18:06] VITALS: BP 97/60
--- NOTE | 2022-02-06 18:53 | Electrocardiograph Report ---
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
== END 2022-02-05 18:18 | disposition home or self-care (01) ==
LOC: ED 10:29
DX: S00.83XA Contusion of other part of head, initial encounter (principal); S09.90XA Unspecified injury of head, initial encounter; R56.9 Unspecified convulsions; Z86.718 Personal history of other venous thrombosis and embolism; F03.90 Unspecified dementia, unspecified severity, without behavioral disturbance, psychotic disturbance, mood disturbance, and anxiety; Z13.30 Encounter for screening examination for mental health and behavioral disorders, unspecified; Z91.09 Other allergy status, other than to drugs and biological substances; Z79.899 Other long term (current) drug therapy; W19.XXXA Unspecified fall, initial encounter; Y93.89 Activity, other specified; Y92.89 Other specified places as the place of occurrence of the external cause; Y99.8 Other external cause status
CPT/HCPCS: 36415; 70450; 70486; 71045; 72125; 80053; 82140; 82550; 84484; 85027; 85610; 85730; 87040; 93005; 96361; 96365; 99284; J0696; J2310; J7030

== ENCOUNTER 2022-03-09 10:36 | Emergency (ER) | payer MEDICARE ==
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
[2022-03-09] MEDS ORDERED: levETIRAcetam 1000 MG/NS 0.75% 1,000 MG/100 ML BAG IV ONE (12:49)
[2022-03-09] MEDS ORDERED: SODIUM CHLORIDE 0.9% 1000 ML 1,000 ML IV ONE (13:56)
[2022-03-09 15:37] LABS: INR 0.99 (0.87-1.13)
[2022-03-09 15:38] LABS: Partial Thromboplastin Time 28.6 Sec. (24.2-36.6)
[2022-03-09 16:20] LABS: Alanine Aminotransferase 11 units/L (7-56); Albumin 3.9 g/dL (3.9-5); BUN/Creatinine Ratio 13; Blood Urea Nitrogen 16 mg/dL (9-20); Calcium 11.7 mg/dL (8.4-10.2); Hemolysis Index 3
[2022-03-09 16:29] LABS: Hematocrit 32.5 % (35.5-45.6); Hemoglobin 11.1 gm/dl (11.8-15.2); Mean Corpuscular HGB Conc 34 % (32-34); Mean Corpuscular Volume 91 fl (84-94); Platelet Count 131 K/mm3 (140-440); Red Blood Count 3.59 M/mm3 (3.65-5.03); Red Cell Distribution Width 14.4 % (13.2-15.2)
[2022-03-09 16:34] LABS: Free T4 (Free Thyroxine) 1.23 ng/dL (0.76-1.46)
[2022-03-09 19:54] VITALS: BP 100/53
--- NOTE | 2022-03-13 13:41 | Electrocardiograph Report ---
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
== END 2022-03-09 20:02 | disposition home or self-care (01) ==
LOC: ED 10:36
DX: R56.9 Unspecified convulsions (principal); F10.10 Alcohol abuse, uncomplicated; F03.90 Unspecified dementia, unspecified severity, without behavioral disturbance, psychotic disturbance, mood disturbance, and anxiety; Z86.718 Personal history of other venous thrombosis and embolism; Z91.09 Other allergy status, other than to drugs and biological substances; Z79.899 Other long term (current) drug therapy; Y90.9 Presence of alcohol in blood, level not specified
CPT/HCPCS: 36415; 80053; 84439; 84443; 85025; 85610; 85730; 93005; 96361; 96374; 99284; J1953; J7030; 80320; G0480

== ENCOUNTER 2022-03-20 21:00 | Emergency (ER) | payer MEDICARE ==
[2022-03-20] MEDS ORDERED: SODIUM CHLORIDE 0.9% 1000 ML 1,000 ML IV ONE ×2 (21:26→22:38)
[2022-03-20 21:58] LABS: Hematocrit 34.9 % (35.5-45.6); Hemoglobin 11.8 gm/dl (11.8-15.2); Mean Corpuscular HGB Conc 34 % (32-34); Mean Corpuscular Volume 91 fl (84-94); Platelet Count 133 K/mm3 (140-440); Red Blood Count 3.82 M/mm3 (3.65-5.03); Red Cell Distribution Width 14.8 % (13.2-15.2)
[2022-03-20] MEDS ORDERED: levETIRAcetam 1,500 MG in DEXTROSE 5% IN WATER 100 ML IV SCH (22:00)
[2022-03-20 22:20] LABS: Alanine Aminotransferase 14 units/L (7-56); Albumin 4.1 g/dL (3.9-5); BUN/Creatinine Ratio 13; Blood Urea Nitrogen 14 mg/dL (9-20); Hemolysis Index 9
--- NOTE | 2022-03-20 22:23 | XRay Report ---
CHEST 1 VIEW 03/20/2022 9:59 PM INDICATION / CLINICAL INFORMATION: seizure. COMPARISON: 02/05/2022 FINDINGS: SUPPORT DEVICES: None. HEART / MEDIASTINUM: Normal. LUNGS / PLEURA: Patchy bilateral pulmonary opacities are similar to the prior. These may be areas of scarring. No pneumothorax. ADDITIONAL FINDINGS: No significant additional findings. IMPRESSION: 1. No significant change. Somewhat patchy peripheral pulmonary opacities which are similar to the [place] or may be areas of scarring. Signer Name: Octavio Parada MD Signed: 03/20/2022 10:18 PM Workstation Name: [id number]
[2022-03-20 22:34] LABS: Calcium 12.4 mg/dL (8.4-10.2)
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
[2022-03-20] MEDS ORDERED: FUROSEMIDE 40 MG/4 ML INJ IV ONE (22:44)
[2022-03-21 00:18] VITALS: BP 162/84
[2022-03-21 00:43] LABS: Color,Urine Colorless (Yellow)
[2022-03-21 00:48] LABS: RBC,Urine < 1.0 /HPF (0.0-6.0)
[2022-03-21 00:53] LABS: Amphetamine Screen,Urine PRESUMPTIVE NEGATIVE; Benzodiazepines Screen,Urine PRESUMPTIVE NEGATIVE; Cannabinoid Screen,Urine PRESUMPTIVE NEGATIVE; Cocaine Screen,Urine PRESUMPTIVE NEGATIVE; Methadone Screen,Urine PRESUMPTIVE NEGATIVE; Opiate Screen,Urine PRESUMPTIVE POSITIVE
[2022-03-21 01:17] LABS: WBC,Urine < 1.0 /HPF (0.0-6.0)
== END 2022-03-21 01:20 | disposition left against medical advice (07) ==
LOC: ED 21:00
DX: E83.51 Hypocalcemia (principal); E87.6 Hypokalemia; R56.9 Unspecified convulsions; F11.90 Opioid use, unspecified, uncomplicated; R41.82 Altered mental status, unspecified; I11.0 Hypertensive heart disease with heart failure; I50.9 Heart failure, unspecified; Z86.718 Personal history of other venous thrombosis and embolism; Z79.899 Other long term (current) drug therapy; Z88.5 Allergy status to narcotic agent; Z79.01 Long term (current) use of anticoagulants
CPT/HCPCS: 36415; 71045; 80053; 80307; 81001; 82140; 82550; 83735; 85027; 96361; 96374; 96375; 99284; J1940; J1953; J7030; J7060

== ENCOUNTER 2022-03-28 09:21 | Emergency (ER) | payer MEDICARE ==
--- NOTE | 2022-03-28 12:23 | Cat Scan Report ---
CT head/brain wo con INDICATION / CLINICAL INFORMATION: 66 years Male; altered mental status. TECHNIQUE: Routine CT head without contrast. All CT scans at this location are performed using CT dos e reduction for ALARA by means of automated exposure control. COMPARISON: The study is compared to previous CT of 02/05/2022. FINDINGS: BRAIN / INTRACRANIAL CONTENTS: There is moderate to cerebral white matter disease most consistent wit h microvascular angiopathy. There is advanced to cerebral atrophy for age with associated prominence of the ventricular system. There is no clear CT evidence of acute intracranial hemorrhage or signific ant mass effect. ORBITS: There is persistent a calcification along the posterior optic globes bilaterally which correl ates with prior exam. SINUSES / MASTOIDS: No significant abnormality in the visualized paranasal sinuses or mastoid air jorge ls. CRANIOCERVICAL JUNCTION: No significant abnormality. ADDITIONAL FINDINGS: None. IMPRESSION: 1. There is continued microvascular angiopathy and cerebral atrophy as described without CT ends of a cute intracranial hemorrhage. Signer Name: Kodak Skinner MD Signed: 03/28/2022 12:19 PM Workstation Name: [id number]
--- NOTE | 2022-03-28 12:41 | XRay Report ---
CHEST 1 VIEW 03/28/2022 11:36 AM INDICATION / CLINICAL INFORMATION: altered mental status. COMPARISON: None available. FINDINGS: SUPPORT DEVICES: None. HEART / MEDIASTINUM: No significant abnormality. LUNGS / PLEURA: Mild increased interstitial prominence without focal consolidation No pneumothorax. ADDITIONAL FINDINGS: Degenerative change in the left shoulder. IMPRESSION: 1. No acute findings. Signer Name: Michael Keene MD Signed: 03/28/2022 12:37 PM Workstation Name: [email or web address]
--- NOTE | 2022-03-28 12:43 | XRay Report ---
RIGHT KNEE 3 VIEWS INDICATION: R anterior knee pain s/p fall 2 days ago. COMPARISON: None. IMPRESSION: No acute osseous injury or bone lesion is detected. Severe osteoarthritic changes are i dentified in the medial compartment. Mild osteoarthritic changes are identified in the lateral and pa tellofemoral compartments. Small joint effusion is noted on the lateral image. Signer Name: Ignacio Sosa Jr, MD Signed: 03/28/2022 12:39 PM Workstation Name: [id number]
[2022-03-28 12:55] LABS: Basophils # (Auto) 0.2 K/mm3 (0.0-0.1); Basophils % (Auto) 2.4 % (0.0-1.8); Eosinophils # (Auto) 0.1 K/mm3 (0.0-0.4); Eosinophils % (Auto) 0.9 % (0.0-4.3); Hematocrit 36.6 % (35.5-45.6); Lymphocytes % (Auto) 25.7 % (13.4-35.0); Mean Corpuscular HGB Conc 33 % (32-34); Mean Corpuscular Volume 92 fl (84-94); Monocytes # (Auto) 0.4 K/mm3 (0.0-0.8); Monocytes % (Auto) 4.8 % (0.0-7.3); Platelet Count 126 K/mm3 (140-440); Red Blood Count 3.99 M/mm3 (3.65-5.03); Red Cell Distribution Width 14.7 % (13.2-15.2)
[2022-03-28 13:20] LABS: Alanine Aminotransferase 12 units/L (7-56); Albumin 4.1 g/dL (3.9-5); BUN/Creatinine Ratio 15; Blood Urea Nitrogen 18 mg/dL (9-20); Calcium 11.9 mg/dL (8.4-10.2); Hemolysis Index 43
[2022-03-28 15:08] LABS: Amphetamine Screen,Urine Negative; Benzodiazepines Screen,Urine Negative; Cocaine Screen,Urine Negative; Opiate Screen,Urine Negative
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
[2022-03-28 15:26] LABS: Color,Urine Yellow (Yellow)
[2022-03-28 15:32] LABS: Hyaline Casts,Urine 3 /LPF; Mucus,Urine FEW /HPF
[2022-03-28 16:07] LABS: Cannabinoid Screen,Urine Positive; Methadone Screen,Urine Positive
[2022-03-28 16:41] VITALS: BP 118/73
--- NOTE | 2022-03-29 10:34 | Electrocardiograph Report ---
[facility] Test Date: 2022-03-28 Test Time: 14:27:12 Pat Name: DAVID PERRY Department: Room: Gender: M Pan Operator: 0000 : [id number] Requested By: SHARATH DENNIS Order Number: [id number] Reading MD: Gerald Mathis Measurements Intervals [place] Rate: 43 P: -9 TN: 182 QRS: 42 QRSD: 92 T: 67 QT: 434 QTc: 368 Interpretive Statements Sinus bradycardia Compared to ECG 03/09/2022 18:45:49 No significant changes Electronically Signed On 03-29-2022 10:33:53 EDT by Gerald Mathis
== END 2022-03-28 16:40 | disposition left against medical advice (07) ==
LOC: ED 09:21
DX: R41.82 Altered mental status, unspecified (principal); R00.1 Bradycardia, unspecified; I10 Essential (primary) hypertension
CPT/HCPCS: 36415; 70450; 71045; 80053; 80307; 80320; 81001; 85025; 93005; 99284; 99285; G0480